=== PATIENT | female | born 1950 | race Caucasian/White ===

== ENCOUNTER → 2017-08-31 09:18 | Outpatient (CLI) | payer MEDICARE, OTHER, SELFPAY ==
[2017-08-31 11:58] LABS: Thyroid Stimulating Hormone 0.12 uIU/mL (0.47-4.68)
== END ==
PROVIDERS: PCP Family Medicine; Visit Provider Internal Medicine Endocrinology, Diabetes & Metabolism
DX: E89.0 Postprocedural hypothyroidism (principal)
CPT/HCPCS: 36415; 84443

== ENCOUNTER → 2017-09-13 06:45 | Outpatient (CLI) | payer MEDICARE, OTHER, SELFPAY ==
[2017-09-13 07:06] LABS: RBC Urine None Seen (0-5/HPF)
[2017-09-13 07:52] LABS: Add Manual Diff / Slide Review NO; Basophils Percent Auto 1.2 % (0-2); Eosinophils Percent Auto 4.7 % (2-4); Hematocrit 43.8 % (36-46); Hemoglobin 14.8 g/dL (12.0-16.0); Lymphocytes Percent Auto 32.2 % (25-40); Mean Corpuscular HGB Conc 33.8 % (30-36); Mean Corpuscular Hemoglobin 31.5 PG (26-34); Mean Corpuscular Volume 93.4 fL (80-100); Monocytes Percent Auto 8.4 % (3-14); Neutrophils Absolute Auto 2600 /uL (3000-5900); Neutrophils Percent Auto 53.5 % (50-75); Platelet Count 205 X10^3/uL (150-400); Red Blood Cell Count 4.69 X10^6/uL (4.0-5.2); White Blood Cell Count 4.8 X10^3/uL (4.5-11.0)
[2017-09-13 08:05] LABS: Appearance Urine UA CLEAR; Bilirubin Urine UA NEGATIVE (NEGATIVE); Color Urine UA YELLOW; Glucose Urine UA NEGATIVE (Normal); Ketones Urine UA NEGATIVE (NEGATIVE); Leukocyte Esterase Urine UA NEGATIVE (NEGATIVE); Nitrite Urine UA Negative (Negative); Occult Blood Urine UA NEGATIVE (Negative); Protein Urine UA NEGATIVE (Negative); Specific Gravity Urine UA 1.025 (1.000-1.035); Urobilinogen Urine UA 0.2 E.U./dL (0.2)
[2017-09-13 08:13] LABS: Squamous Epithelial Cell Urine 5-10 /HPF; WBC Urine 0-1/HPF (0-5/HPF)
[2017-09-13 08:14] LABS: Bacteria Urine Few (2-10); Culture Indicated Urine Cult Not Indicated; Mucus Urine 1+ (Negative)
[2017-09-13 09:00] LABS: Blood Urea Nitrogen 18 mg/dL (7-17); Calcium 9.3 mg/dL (8.4-10.2); Carbon Dioxide 24 mmol/L (22-32); Chloride 105 mmol/L (98-107); Estimated Glomerular Filt Rate > 60.0 mL/min (>60); Glucose 84 mg/dL (80-110); HEMOLYSIS 22 (0-50); Sodium 143 mmol/L (137-145)
[2017-09-13 09:19] LABS: Transferrin 245 mg/dL (206-381)
[2017-09-13 09:42] LABS: Hemoglobin A1C% w Est Avg Glu 5.1 % (4.0-6.0)
== END ==
PROVIDERS: PCP Family Medicine; Visit Provider Orthopaedic Surgery
DX: M25.562 Pain in left knee (principal); Z01.812 Encounter for preprocedural laboratory examination; D64.9 Anemia, unspecified; R73.9 Hyperglycemia, unspecified; N39.0 Urinary tract infection, site not specified
CPT/HCPCS: 36415; 80048; 81001; 83036; 84466; 85025; 93005

== ENCOUNTER 2017-10-10 11:42 | Inpatient (IN) | payer MEDICARE, OTHER, SELFPAY ==
[2017-09-21 10:52] VITALS: BMI 55.2
[2017-10-10] VITALS (12 sets, daily range): BP systolic 107–155; BP diastolic 57–85; PULSE 71–89; RESP 12–22; TEMP 36.2–36.6; O2SAT 91–99; BMI 56.2
[2017-10-10] MEDS: LACTATED RINGERS 1,000 ML 42 ML IV ×2 (13:00→14:50)
[2017-10-10] MEDS: MIDAZOLAM 2 MG/2 ML VIAL IV (13:02)
[2017-10-10] MEDS: ACETAMINOPHEN 325 MG TABLET 975 MG PO (13:05)
[2017-10-10] MEDS: CELECOXIB 200 MG CAPSULE PO (13:05)
[2017-10-10] MEDS: fentaNYL 100 MCG/2 ML INJ IV ×2 (13:07→13:25)
[2017-10-10] MEDS: CEFAZOLIN VIAL 3 GM in SODIUM CHLORIDE 0.9% 100 ML 200 ML IV ×2 (13:45→21:05)
[2017-10-10] MEDS: TRANEXAMIC ACID 1,000 MG VIAL 1000 MG INJ ×2 (14:00→14:33)
--- NOTE | 2017-10-10 14:17 | SUR.OPER ---
Supine on padded OR bed. Pillow under head, arms secured on padded armboards <90 degree abduction. Additional gel pads on hips, elbows. Safety belt across torso. Non-operative leg secured with tape over blanket over lower leg. Operative leg secured in DeMayo/Landry positioner. Foam padded brace at thigh of operative leg.
[2017-10-10] MEDS: BUPIVACAINE LIPOSOME 266 MG/20 ML VIAL INJ (14:31)
[2017-10-10] MEDS: BUPIVACAINE 0.25% W/ EPI 50 ML VIAL INJ (14:31)
[2017-10-10] MEDS: MORPHINE 4 MG/ML INJ INJ (14:31)
--- NOTE | 2017-10-10 15:24 | PM.PROC.1 ---
Procedures Date/Time Date of procedure: 10/10/17 Time of procedure: 13:00 General Procedure description: Left Femoral Nerve block Pt sedated. Standard ASA monitors applied. Sterile prep and drape of the left groin using Chloroprep. 1% Lidocaine skin wheel. Ultrasound probe used to guide a 21 Ga x 100 mm Pajunk needle towards the Femoral Nerve. Positive stimulation of the femoral nerve at 1.0 mA. Negative aspiration for blood. No pain on injection of 0.5% Ropivicaine. 15 ml total. No signs of LAST. Complications: none
--- NOTE | 2017-10-10 15:28 | PM.PROC.1 ---
Procedures Date/Time Date of procedure: 10/10/17 Time of procedure: 13:00 General Procedure description: Left Sciatic Nerve Block Std ASA monitors. Pt sedated. Sterile prep of left lateral aspect of the thigh using Chloroprep. 1% Lidocaine skin wheel. Ultrasound used to guide a 21 GA X 100 mm Pajunk needle towards the Sciatic Nerve. Positive stimulation using a PNS. Negative aspiration for blood. No pain on injection of 15 ml of 0.5% Ropivicaine. Pt tolerated the procedure well. Complications: none
--- NOTE | 2017-10-10 16:31 | DI.RAD.S_ITS ---
PROCEDURE: XR KNEE LT 1TO2V INDICATIONS: post op total knee TECHNIQUE: 2 view(s) of the knee acquired. COMPARISON: None. FINDINGS: Bones: Patient is status post knee joint arthroplasty. Hardware components are in expected positions. Visualized bony structures are intact. Soft tissues: Overlying postoperative changes are noted. IMPRESSION: Expected appearance following knee arthroplasty. Dictated by: Krish Grant M.D. on 10/10/2017 at 16:56 Approved by: Krish Grant M.D. on 10/10/2017 at 16:57
--- NOTE | 2017-10-10 16:32 | PM.OP.1 ---
Operative Date/Time/Diagnoses Date of procedure: 10/10/17 Time of procedure: 16:10 Pre-op diagnosis: Loosening of tibial component, left knee Post-op diagnosis: same Procedure & Clinicians Procedure: Revision of both femoral and tibial components, left total knee Same procedure as scheduled: Yes Indications: The patient has had progressively worsening left knee pain with radiographic changes consistent with loosening of her tibial component of her total knee. Non-operative management has failed and the patient has requested total knee replacement. Infection has been extensively worked up and ruled out preoperatively. The risks, benefits and alternatives to surgery were discussed with the patient prior to proceeding. Risks discussed included, but were not limited to, failure to relieve pain, stiffness, infection, nerve damage, deep venous thrombosis, pulmonary embolism, stroke, coma, heart attack, permanent paralysis and , as well as the potential need for eventual revision of the prosthetic. Surgeon: Junior Murphy Floor Tiling Professional: Claudio Sy Click Yes if Unassisted: No Anesthesia Type: General, Peripheral nerve block and Local Operative Notes Findings: Loose tibial component with well-fixed femoral component. The patella also appeared to be well fixed. Closure Type: primary Specimen(s): other (And tissue was sent for culture and Gram stain) Implants & Drains: Implants used in this procedure were manufactured by the [employer] and included a Legion revision total knee system with a size 4 left constrained Oxinium femoral component, a straight 14 x 160 mm femoral stem, a size 3 left revision tibial base plate with a 5 mm medial tibial augment, a 4 mm offset tool turret lathe set up operator and a 11 mm x 160 mm stem. In addition a 13 mm cross-linked polyethylene posterior stabilized tibial insert was used. Applied: catheter and implant(s) Estimated Blood Loss (mL): 300 Blood products transfused: none Tourniquet time (min): 68 Procedure in detail: The patient was seen in the pre-operative area, where the left knee was identified as the operative site and this was marked with my initials. The patient received pre-operative antibiotics, and was taken to the operating room and placed on the operative table in the supine position. After satisfactory anesthesia, a time clock inspector out was performed. The left leg was encircled with a tourniquet about the proximal thigh, and the leg was prepared from the toes to the tourniquet with ChloroPrep in the usual fashion and draped through sterile drapes. The leg was elevated and exsanguinated with Eschmark bandage and the tourniquet inflated to 300 mmHg pressure. The knee was approached through an approximately 25 cm incision using the prior incision and carried into the knee through a medial parapatellar arthrotomy. The stitches from the prior capsular closure were removed. A synovectomy was performed removing the carroll synovium. The well-fixed femoral component was loosened from the underlying bone using osteotomes and removed with a tamp. Minimal bone was removed. Retractors were placed to access the tibia, the tibial component was very easily removed as it was grossly loose. No cement was adherent to the tibial component. All of it remained on the tibia. This was removed with osteotomes with great care, however open up the bone was removed on the medial tibial plateau to require augmentation. After removal of the cement, the canal was sounded with cylindrical reamers. The 11 had a good fit and this was used as an intramedullary guide for the cutting jig. A skim cut was taken from the lateral tibial plateau which remained in good condition. The tibial Sizer was applied. A 4 mm offset appeared to allow the best positioning. This was pinned in place and the canal enlarged using the appropriate reamers. The trial tibial component was then applied. The out antenna rigger for cutting space for the augment was used on the medial side for a 5 mm augment. The trial component was then fully constructed with the trial stem and the trial augment and placed in position. The fin slots were cut with the appropriate tamp. We then turned our attention to the femur. The rotational landmark of the transepicondylar axis was marked on the femur with electrocautery, and an intramedullary guide hole for the femur was created. The distal femoral cut was made , creating a skim cut. The size of the prosthetic was matched with the prosthetic guide had been removed and the appropriate cutting block placed. The anterior, posterior and chamfer cuts were then made. The trial femoral prosthetic was constructed and placed. With a 13 mm trial there was full extension and excellent stability in flexion and extension. Flexion range of motion measured approximately 120?. Further flexion was limited by the patient's obesity. During trialing the tourniquet was deflated at a tourniquet time of 50 min. The leg was then elevated and re-exsanguinated with the Esmarch bandage and the tourniquet reinflated to allow cementing. Cement was impacted into position and the prosthetics placed. Excess cement was removed during and after cement curing. The final tibial insert was then placed. The posterior capsule was injected with part of a mixture of 50 ml 0.25% Marcaine mixed with 20 ml Exparel and 4 mg of morphine for post-operative pain control prior to placing the tibial insert. The remainder of this mixture was injected into the capsule and subcutaneous tissues during cement curing. As the patella was well fixed, we elected to leave it in position. The knee was copiously irrigated and the tourniquet deflated. Hemostasis was obtained. The capsule was closed with interrupted # 2 polyester sutures. The subcutaneous layer was closed with 3-0 Vicryl, and the skin with nikhil. A Kam dressing was applied and the patient was taken to recovery having tolerated the procedure well. Complications: none Condition: stable Disposition: PACU Plan for aftercare: The patient will be maintained on a standard total knee replacement protocol with weight bearing as tolerated. The patient will receive aspirin and sequential compression devices for DVT prophylaxis. The patient will be discharged home when safe for the home environment.
[2017-10-10] MEDS: fentaNYL 100 MCG/2 ML INJ 50 MCG IV ×2 (16:35→16:40)
--- NOTE | 2017-10-10 16:46 | P.OP_ITS ---
Operative Date/Time/Diagnoses Date of procedure: 10/10/17 Time of procedure: 16:10 Pre-op diagnosis: Loosening of tibial component, left knee Post-op diagnosis: same Procedure & Clinicians Procedure: Revision of both femoral and tibial components, left total knee Same procedure as scheduled: Yes Indications: The patient has had progressively worsening left knee pain with radiographic changes consistent with loosening of her tibial component of her total knee. Non-operative management has failed and the patient has requested total knee replacement. Infection has been extensively worked up and ruled out preoperatively. The risks, benefits and alternatives to surgery were discussed with the patient prior to proceeding. Risks discussed included, but were not limited to, failure to relieve pain, stiffness, infection, nerve damage, deep venous thrombosis, pulmonary embolism, stroke, coma, heart attack, permanent paralysis and , as well as the potential need for eventual revision of the prosthetic. Surgeon: Junior Murphy Drive Worker: Claudio Sy Click Yes if Unassisted: No Anesthesia Type: General, Peripheral nerve block and Local Operative Notes Findings: Loose tibial component with well-fixed femoral component. The patella also appeared to be well fixed. Closure Type: primary Specimen(s): other (And tissue was sent for culture and Gram stain) Implants & Drains: Implants used in this procedure were manufactured by the [employer] and included a Legion revision total knee system with a size 4 left constrained Oxinium femoral component, a straight 14 x 160 mm femoral stem, a size 3 left revision tibial base plate with a 5 mm medial tibial augment, a 4 mm offset home sales service professional and a 11 mm x 160 mm stem. In addition a 13 mm cross-linked polyethylene posterior stabilized tibial insert was used. Applied: catheter and implant(s) Estimated Blood Loss (mL): 300 Blood products transfused: none Tourniquet time (min): 68 Procedure in detail: The patient was seen in the pre-operative area, where the left knee was identified as the operative site and this was marked with my initials. The patient received pre-operative antibiotics, and was taken to the operating room and placed on the operative table in the supine position. After satisfactory anesthesia, a multimedia developer out was performed. The left leg was encircled with a tourniquet about the proximal thigh, and the leg was prepared from the toes to the tourniquet with ChloroPrep in the usual fashion and draped through sterile drapes. The leg was elevated and exsanguinated with Eschmark bandage and the tourniquet inflated to 300 mmHg pressure. The knee was approached through an approximately 25 cm incision using the prior incision and carried into the knee through a medial parapatellar arthrotomy. The stitches from the prior capsular closure were removed. A synovectomy was performed removing the carroll synovium. The well-fixed femoral component was loosened from the underlying bone using osteotomes and removed with a tamp. Minimal bone was removed. Retractors were placed to access the tibia, the tibial component was very easily removed as it was grossly loose. No cement was adherent to the tibial component. All of it remained on the tibia. This was removed with osteotomes with great care, however open up the bone was removed on the medial tibial plateau to require augmentation. After removal of the cement, the canal was sounded with cylindrical reamers. The 11 had a good fit and this was used as an intramedullary guide for the cutting jig. A skim cut was taken from the lateral tibial plateau which remained in good condition. The tibial Sizer was applied. A 4 mm offset appeared to allow the best positioning. This was pinned in place and the canal enlarged using the appropriate reamers. The trial tibial component was then applied. The out fisher lobster for cutting space for the augment was used on the medial side for a 5 mm augment. The trial component was then fully constructed with the trial stem and the trial augment and placed in position. The fin slots were cut with the appropriate tamp. We then turned our attention to the femur. The rotational landmark of the transepicondylar axis was marked on the femur with electrocautery, and an intramedullary guide hole for the femur was created. The distal femoral cut was made , creating a skim cut. The size of the prosthetic was matched with the prosthetic guide had been removed and the appropriate cutting block placed. The anterior, posterior and chamfer cuts were then made. The trial femoral prosthetic was constructed and placed. With a 13 mm trial there was full extension and excellent stability in flexion and extension. Flexion range of motion measured approximately 120?. Further flexion was limited by the patient's obesity. During trialing the tourniquet was deflated at a tourniquet time of 50 min. The leg was then elevated and re- exsanguinated with the Esmarch bandage and the tourniquet reinflated to allow cementing. Cement was impacted into position and the prosthetics placed. Excess cement was removed during and after cement curing. The final tibial insert was then placed. The posterior capsule was injected with part of a mixture of 50 ml 0.25% Marcaine mixed with 20 ml Exparel and 4 mg of morphine for post-operative pain control prior to placing the tibial insert. The remainder of this mixture was injected into the capsule and subcutaneous tissues during cement curing. As the patella was well fixed, we elected to leave it in position. The knee was copiously irrigated and the tourniquet deflated. Hemostasis was obtained. The capsule was closed with interrupted # 2 polyester sutures. The subcutaneous layer was closed with 3-0 Vicryl, and the skin with nikhil. A Kam dressing was applied and the patient was taken to recovery having tolerated the procedure well. Complications: none Condition: stable Disposition: PACU Plan for aftercare: The patient will be maintained on a standard total knee replacement protocol with weight bearing as tolerated. The patient will receive aspirin and sequential compression devices for DVT prophylaxis. The patient will be discharged home when safe for the home environment.
[2017-10-10] MEDS: HYDROMORPHONE 1 MG INJ IV (16:50)
[2017-10-10] MEDS: LACTATED RINGERS 1,000 ML 100 ML IV (17:30)
--- NOTE | 2017-10-10 17:55 | PC.NURSE ---
Post-op note: Pt brought to rm 217 around 1730, VS stable. RA oxygen high 90's. Denies pain to left knee after they gave me some good stuff downstairs. Left knee with ritesh wrap drsg and antonio/drain, site CDI. Ice packs in place. Denies numbness to L leg but does report her left toes are still numb. Wearing SCD's bilaterally. Oriented to room & call button, visiting with family at bedside.
[2017-10-10] MEDS: ACETAMINOPHEN 325 MG TABLET 650 MG PO (18:40)
[2017-10-10] MEDS: LIOTHYRONINE 5 MCG TABLET 2.5 MCG PO (18:40)
[2017-10-10] MEDS: OXYCODONE IR 5 MG TABLET PO (21:01)
[2017-10-10] MEDS: SIMVASTATIN 20 MG TABLET PO (21:01)
[2017-10-10] MEDS: DOCUSATE 100 MG CAPSULE PO (21:01)
[2017-10-10] MEDS: hydrOXYzine pamoate 25 MG CAPSULE PO (21:01)
[2017-10-10] MEDS: ASPIRIN EC 81 MG TABLET PO (21:01)
[2017-10-11] VITALS (7 sets, daily range): BP systolic 103–129; BP diastolic 56–69; PULSE 59–84; RESP 16–18; TEMP 36.2–36.8; O2SAT 92–99
[2017-10-11] MEDS: ACETAMINOPHEN 325 MG TABLET 650 MG PO ×4 (00:37→18:24)
[2017-10-11] MEDS: OXYCODONE IR 5 MG TABLET PO ×6 (00:37→21:46)
[2017-10-11] MEDS: LACTATED RINGERS 1,000 ML 100 ML IV (03:30)
--- NOTE | 2017-10-11 04:58 | PC.NURSE ---
Nozzle Worker- Pt slept fair throughout night. Rated 6/10 pain as dull intermittent ache to left knee. Oxycodone po prn given at 0035. Afterwards pt fell asleep. Left knee JORGE dressing intact with scant sang shadowing to mid dressing, covered with ritesh wrap. ice pack used on/off. CMS satisfactory. Left foot remained slightly numb at 0025 assessment, pt able to wiggle toes and slightly dorsal flex foot. Calf SCD's on. Pérez insitu draining clear yellow urine. IVF infusing well to right hand PIV per order. Pt has not had much po intake, plan to keep IVF infusing for now. O2 sat 95% on RA, remained on continuous O2 monitoring throughout night. High fall risk precautions in place, bed alarm on.
[2017-10-11 06:00] LABS: Hemoglobin 12.6 g/dL (12.0-16.0)
[2017-10-11] MEDS: CEFAZOLIN VIAL 3 GM in SODIUM CHLORIDE 0.9% 100 ML 200 ML IV (06:01)
[2017-10-11] MEDS: LIOTHYRONINE 5 MCG TABLET PO (06:33)
[2017-10-11] MEDS: LEVOTHYROXINE 150 MCG TABLET PO (06:33)
--- NOTE | 2017-10-11 08:24 | PC.NURSE ---
Shift summary: Awake and alert, oriented X3. THIAGO wrap to L knee C/D/I. JORGE drain/dressing WNL. Reports ongoing numbness from L knee to toes. She is able to wiggle toes. PP+ to BLE's, feet pink/warm. Cap refill <2 sec. Reports L knee pain 5/10. Ice packs and SCD's in place. Encouraged coughing, deep breathing and ankle waving. Lungs CTA, SpO2 on RA 100%. Denies N/V, tolerating PO's well. BT+, flatus+. Pérez to gravity, urine clear yellow. IVF per orders, site in R hand WNL. Able to make needs known, states none now. Call light in reach, bed alarm on.
--- NOTE | 2017-10-11 08:44 | PT.IPTN ---
Current Diagnoses Broken internal joint prosthesis, other site, subsequent encounter (10/10/17) Surgery Performed Operation Date: 10/10/17 13:45 Actual Procedures p Total Knee Arthroplasty Revision(Left) - Junior Murphy MD Physical Therapy Treatment Note Subjective Physical Therapy Visit Type Type Administrative Note Notes Pt has no feeling or active motion in the LLE from the knee down except for PF. Pt also reports the doctor saw her this morning and said not to put weight on it until more feeling/control comes back. Will hold PT eval for now and check back later.
[2017-10-11] MEDS: MELOXICAM 7.5 MG TABLET 15 MG PO (10:22)
[2017-10-11] MEDS: SPIRONOLACTONE 25 MG TABLET PO (10:22)
[2017-10-11] MEDS: FLUTICASONE 120 SPRAY/16 GM SPRAY.SUSP NASAL (10:22)
[2017-10-11] MEDS: ASPIRIN EC 81 MG TABLET PO ×2 (10:22→21:45)
[2017-10-11] MEDS: DOCUSATE 100 MG CAPSULE PO ×2 (10:22→21:45)
--- NOTE | 2017-10-11 10:25 | CM.DANOTE ---
Discharge Planning/Care Management CM Discharge Assessment Start: 10/11/17 10:22 Freq: Status: Active Protocol: Document 10/11/17 10:22 RL (Rec: 10/11/17 10:24 RL [id number]) Discharge Planning Assessment History Provided By Patient Has Patient been admitted in last 30 No days? Is this patient on Medicare? Yes Is the admit diagnosis the same? Yes Prior Living Arrangements House Household Members spouse Type of transporation used prior to Drives own vehicle admit Independent with ADL's Yes Is patient alert and oriented? Yes Caregiver for Another No Patient Discharge Plan Description Shelter Facility Comment Pt with 2 prev TKAs, has all equip needed and long ramp into home, handrails, etc. Discharge Plan Shelter Facility Additional Comment SNF vs home; depending upon mobility and pt needs once more mobile. Prefers [facility]; has gone to [facility] in past Review Status Complete DCP Assessment: 10/11/17 Case reviewed, EMR reviewed and met with patient who is fully A&O. Pt is a 66 yo female admitted as Inpatient status for revision of LTKA under the care of Dr. Murphy. PCP: Frankie Pascal Primary payor is: [facility]; secondary is [facility] Other health care agencies used: none Met with patient. Introduced self as DCP, explained role and goals of DCP and as pt advocate. Patient verbalized understanding. DCP wrote name and extension number on patient whiteboard. She lives at home with spouse. Has not filled out DPOA forms yet so DCP gave her two brochures on the subject for her and spouse. Patient was independent at baseline for all ADLs prior to this hospitalization. Has had 2 previous TKAs and has all equip at home except for shower chair. Last two TKAs she went to [facility]. If she is mobilizing well she would like to go home, but feels she will likely need a SNF and prefers [facility]. Currently she still has the neuro block from surgery intact, so not sure how pain will be and unsure about mobilization; to be seen after block wears off. Contacted: Roshni higgins for Judie at [facility] to please access chart and review for possible admission when stable to transfer. Plan: Home vs SNF/[facility]. To be determined. Follow closely. Nikky Hsu RN
--- NOTE | 2017-10-11 12:30 | PT.IPTN ---
Current Diagnoses Broken internal joint prosthesis, other site, subsequent encounter (10/10/17) Surgery Performed Operation Date: 10/10/17 13:45 Actual Procedures p Total Knee Arthroplasty Revision(Left) - Junior Murphy MD Physical Therapy Treatment Note Subjective Physical Therapy Visit Type Type Administrative Note Notes Pt's legs still completely numb with minimal voluntary motion at the ankles. Will continue to hold PT eval until pt's motor control and sensation are more improved.
--- NOTE | 2017-10-11 12:34 | CM.DPC ---
10/11: KIERAN received VM messg from Judie at [facility]. States that insurance coverage for this patient checks out; all she would need is to have the 3 midnight stay for coverage and transfer, and they would be happy to accept her at [facility]. (Needs 2 more midnights at this time, as is POD 1.)
--- NOTE | 2017-10-11 13:24 | PM.PNPO.1 ---
Subjective Date Patient Seen: 10/11/17 Time Patient Seen: 13:24 Interval history: S/P Lt Revison total knee arthroplasty by Dr. Murphy. PD 1. Pt stable. States that she can move her toes now but still numb from her knee down to foot. This morning she could not move her foot up. She was given some PT exercies to do in bed this morning. Exam Vital Signs (past 8 hours): - 10/11/17 05:40 10/11/17 07:15 10/11/17 12:17 Temperature 97.4 F L 97.6 F 98.3 F Pulse Rate 64 59 L 84 Respiratory Rate 18 16 16 Blood Pressure 103/56 L 111/64 129/65 H Pulse Oximetry 96 97 97 Oxygen Delivery Method Room Air Oxygen Flow Rate 0 Narrative Exam Narrative: Left knee peroneal block still in place. Numbness from knee down to foot. Can actively dorsiflex and plantarflex ankle. THIAGO wrap over left knee. JORGE dressing in place. Andrés calves soft and nontender. Alert and oriented x3. Objective Labs Result Diagrams: 10/11/17 05:29 Labs: Laboratory Results - last 24 hr 10/11/17 05:29 Hgb 12.6 Hct 37.0 Assessment & Plan Post-op Postoperative Procedures Operation Date: 10/10/17 13:45 Actual Procedures Side Surgeon p Total Knee Arthroplasty Revision Left Junior Murphy MD s/p Lt revison TKA. PD 1. Continue DVT prophylaxis with ASA, SCDs and foot pumps. Continue pain regimen. Pt to ambulate with PT. Time Spent With Patient less than 15 minutes Quality VTE Deep Vein Thrombosis/Pulmonary Embolism Present on Admission: No
[2017-10-11] MEDS: SIMVASTATIN 20 MG TABLET PO (21:46)
[2017-10-12] VITALS (7 sets, daily range): BP systolic 97–126; BP diastolic 51–74; PULSE 66–89; RESP 16–18; TEMP 36.1–36.8; O2SAT 96–99
[2017-10-12] MEDS: ACETAMINOPHEN 325 MG TABLET 650 MG PO ×4 (02:20→17:47)
[2017-10-12] MEDS: OXYCODONE IR 5 MG TABLET PO ×11 (02:21→21:49)
[2017-10-12] MEDS: hydrOXYzine pamoate 25 MG CAPSULE PO (04:12)
[2017-10-12] MEDS: LEVOTHYROXINE 150 MCG TABLET PO (07:10)
[2017-10-12] MEDS: LIOTHYRONINE 5 MCG TABLET PO (07:10)
--- NOTE | 2017-10-12 07:11 | PM.PNPO.1 ---
Subjective Date Patient Seen: 10/12/17 Time Patient Seen: 07:11 Interval history: Postop day 2. Status post revision of both femoral and tibial components, left total knee. Patient's pain is 8/10. Residual numbness left lower extremity yesterday was not out of bed with physical therapy. She did perform in bed exercises 3 times. No fever chills. No nausea vomiting. Exam Vital Signs (past 8 hours): - 10/12/17 02:05 10/12/17 04:02 Temperature 97.1 F L 97 F L Pulse Rate 66 72 Respiratory Rate 16 18 Blood Pressure 102/60 103/59 L Pulse Oximetry 99 96 Oxygen Delivery Method Room Air Oxygen Flow Rate 0 Narrative Exam Narrative: 66-year-old female resting comfortably in bed in no apparent distress. Kam dressing intact and functioning. Dressing is clean and dry. Sensation grossly intact to light touch bilateral lower extremities. Dorsiflexion, plantar flexion, great toe extension as well as inversion, eversion intact bilateral lower extremities. Objective Labs Result Diagrams: 10/11/17 05:29 Assessment & Plan Post-op Postoperative Procedures Operation Date: 10/10/17 13:45 Actual Procedures Side Surgeon p Total Knee Arthroplasty Revision Left Junior Murphy MD weightbearing as tolerated. Encourage out of bed and mobilize with physical therapy. Continue aspirin sequential compressive devices for DVT prophylaxis. Time Spent With Patient less than 15 minutes Quality VTE Deep Vein Thrombosis/Pulmonary Embolism Present on Admission: No
[2017-10-12] MEDS: ASPIRIN EC 81 MG TABLET PO ×2 (08:42→21:25)
[2017-10-12] MEDS: FLUTICASONE 120 SPRAY/16 GM SPRAY.SUSP NASAL (08:42)
[2017-10-12] MEDS: DOCUSATE 100 MG CAPSULE PO ×2 (08:42→21:25)
[2017-10-12] MEDS: MELOXICAM 7.5 MG TABLET 15 MG PO (08:42)
--- NOTE | 2017-10-12 09:23 | PT.IPTN ---
Current Diagnoses Broken internal joint prosthesis, other site, subsequent encounter (10/10/17) Surgery Performed Operation Date: 10/10/17 13:45 Actual Procedures p Total Knee Arthroplasty Revision(Left) - Junior Murphy MD Physical Therapy Treatment Note M2 PT-IP Current Condition Start: 10/11/17 08:23 Freq: NEEDED Status: Active Protocol: Document 10/12/17 09:23 AB (Rec: 10/12/17 12:05 AB [email or web address]) Physical Therapy Current Condition Current Condition Evaluation Date 10/12/17 Treatment Diagnosis s/p L TKA revision Onset Date 10/10/17 Weight Bearing Status Weight Bearing Status Weight Bear as Tolerated M3 PT-IP Subjective Start: 10/11/17 08:23 Freq: NEEDED Status: Active Protocol: Document 10/12/17 09:23 AB (Rec: 10/12/17 12:05 AB [email or web address]) Subjective Physical Therapy Visit Type Type Initial Evaluation Visit Start Time 09:23 Visit Stop Time 10:11 Total Visit Minutes 48 Number of RESPIRATORY CLINICIAN Visits 0 Physical Therapy Visit Comments Patient Comments pt agreeable to do therapy Short Term Goals stated that she is thinking on going to [facility] for rehab Therapy Pain Assessment Pain When Pain Assessed At Rest Pain Present Pain Present Pain Reported Location Left Knee Intensity 8 Scale Used Numeric (1 - 10) Pain Management Techniques Apply Cold Re-positioning Timing of Activity with Medications M4 PT-IP Mobility and Gait Start: 10/11/17 08:23 Freq: NEEDED Status: Active Protocol: Document 10/12/17 09:23 AB (Rec: 10/12/17 12:05 AB [email or web address]) PT-Bed Mobility Assessment Supine to Sit Supine to Sit Moderate Assistance PT-Transfer Assessment Sit to and From Stand Sit to and from Stand Moderate Assistance Use of Upper Extremities Equipment Transfer Assistive Device Gait Belt Front Wheeled Walker Orthotic/Prosthetic Devices or Brace: No Transfers Transfer Destination Chair Transfer Technique Stand Step Pivot Transfer Ability Level of Assist Moderate Assistance 1 Person Assistance Use of Upper Extremities Comments Mobility Comments pt was able to take ~ 5 steps to transfer bed to chair. c/o lightheadedness and nausea and requested to sit down on chair. Pt unable to ambulate at this time. BP in supine prior to tx: 146/ 67 BP after transfer sitting on chair: 96/56 Nurse informed about BP and pt 's c/o lightheadedness/nausea Gait Assessment Comments Gait Comments unable to ambulate at this time PT-Balance Assessment Sitting Balance and Reactions Static Sitting Balance Ability Good Dynamic Sitting Balance Ability Good Standing Balance and Reactions Static Standing Balance Ability Fair Dynamic Standing Balance Ability Fair Device Used FWW M5 PT-IP Objective Assessments Start: 10/11/17 08:23 Freq: NEEDED Status: Active Protocol: Document 10/12/17 09:23 AB (Rec: 10/12/17 12:05 AB [email or web address]) Orientation Orientation/Cognition Level of Alertness Alert Orientation Name Age Birthday Month Date Year Day of Week Place Situation Gross Range of Motion Lower Extremity ROM Assessment Bilaterally Impaired Strength Lower Extremity Strength Assessment Bilaterally Impaired Knee 3+/5 Comments Strength Comments LLE weaker than RLE M6 PT-IP Treatment Start: 10/11/17 08:23 Freq: NEEDED Status: Active Protocol: Document 10/12/17 09:23 AB (Rec: 10/12/17 12:05 AB [email or web address]) Physical Therapy Treatment Education Education Provided Weight Bearing Status Post-Op Packet Safety M7 PT-IP Assessment and Plan Start: 10/11/17 08:23 Freq: NEEDED Status: Active Protocol: Document 10/12/17 09:23 AB (Rec: 10/12/17 12:05 AB [email or web address]) PT Summary Assessment and Plan Potential Rehabilitation Potential Fair Status of Condition at Evaluation Evolving Summary Impairments Pain ROM Strength Balance Bed Mobility Transfers Gait Activity Tolerance Assessment Summary pt requiring mod A with mobility and has decrease activity tolerance with decrease in BP after transfer. pt stated that she has limited assist at home. Pt may require SNF rehab to improve function and independence. Goals Bed Mobility Goal Standby Assistance Transfer Goal Standby Assistance Gait Goal Standby Assistance Gait Distance 100 Days to Meet Goals 3 Frequency of Treatment Frequency Of Treatment Twice a Day Treatment Plan Physical Therapy Treatment Plan Bed Mobility Training Transfer Training Gait Training Therapeutic Exercise Balance Retraining Post Op Education Discharge Planning Hot or Cold Pack Neuromuscular Re-ed Coordination Retraining Manual Therapy Other Recommendations and Next Treatment ambulation Focus Recommendations To Nursing Amount of Assist Needed 1 Person Assist Discharge Recommendations PT Discharge Recommendations SNF Rehab
--- NOTE | 2017-10-12 14:30 | PT.IPTN ---
Current Diagnoses Broken internal joint prosthesis, other site, subsequent encounter (10/10/17) Surgery Performed Operation Date: 10/10/17 13:45 Actual Procedures p Total Knee Arthroplasty Revision(Left) - Junior Murphy MD Physical Therapy Treatment Note M2 PT-IP Current Condition Start: 10/11/17 08:23 Freq: NEEDED Status: Active Protocol: Document 10/12/17 09:23 AB (Rec: 10/12/17 12:05 AB [email or web address]) Physical Therapy Current Condition Current Condition Evaluation Date 10/12/17 Treatment Diagnosis s/p L TKA revision Onset Date 10/10/17 Weight Bearing Status Weight Bearing Status Weight Bear as Tolerated M3 PT-IP Subjective Start: 10/11/17 08:23 Freq: NEEDED Status: Active Protocol: Document 10/12/17 14:30 GGD (Rec: 10/12/17 14:57 GGD [id number]) Subjective Physical Therapy Visit Type Type Treatment Note Visit Start Time 14:00 Visit Stop Time 14:30 Total Visit Minutes 30 Number of ERP SPECIALIST Visits 1 Physical Therapy Visit Comments Patient Comments Pt states that she is ready to get back to bed. Therapy Pain Assessment Pain When Pain Assessed At Rest Pain Present Pain Present Pain Reported Location Left Knee Intensity 8 Scale Used Numeric (1 - 10) Description Burning Pain Management Techniques Apply Cold Re-positioning Timing of Activity with Medications M4 PT-IP Mobility and Gait Start: 10/11/17 08:23 Freq: NEEDED Status: Active Protocol: Document 10/12/17 14:30 GGD (Rec: 10/12/17 14:57 GGD [id number]) PT-Bed Mobility Assessment Sit to Supine Sit to Supine Moderate Assistance 1 Person Assistance Scooting Scooting to Edge of Bed Contact Guard Assistance PT-Transfer Assessment Sit to and From Stand Sit to and from Stand Minimal Assistance Use of Upper Extremities Equipment Transfer Assistive Device Gait Belt Front Wheeled Walker Transfers Transfer Destination Bed Comments Mobility Comments BP in sitting 117/56 Gait Assessment Gait Gait Assistance Required: Contact Guard Assist Distance (Feet) (feet) 15 Assistive Devices Assistive Device Gait Belt Front Wheeled Walker Gait Deviations General Gait Pattern Decreased Stride Length Decreased Feet Clearance Step-to Gait Factors Limiting Gait Function Factors Limiting Gait Function Decreased Activity Tolerance Decreased Sensation Decreased Strength Limited Range of Motion Pain Poor Balance M5 PT-IP Objective Assessments Start: 10/11/17 08:23 Freq: NEEDED Status: Active Protocol: Document 10/12/17 09:23 AB (Rec: 10/12/17 12:05 AB [email or web address]) Orientation Orientation/Cognition Level of Alertness Alert Orientation Name Age Birthday Month Date Year Day of Week Place Situation Gross Range of Motion Lower Extremity ROM Assessment Bilaterally Impaired Strength Lower Extremity Strength Assessment Bilaterally Impaired Knee 3+/5 Comments Strength Comments LLE weaker than RLE M6 PT-IP Treatment Start: 10/11/17 08:23 Freq: NEEDED Status: Active Protocol: Document 10/12/17 14:30 GGD (Rec: 10/12/17 14:57 GGD [id number]) Physical Therapy Treatment Exercises Exercises Ankle Pumps Quad Sets Heel Slides Seated Knee Flexion/Extension M7 PT-IP Assessment and Plan Start: 10/11/17 08:23 Freq: NEEDED Status: Active Protocol: Document 10/12/17 14:30 GGD (Rec: 10/12/17 14:57 GGD [id number]) PT Summary Assessment and Plan Summary Assessment Summary Pt improving slowly with mobility. She was able to walk with cues for UE support. Frequency of Treatment Frequency Of Treatment Twice a Day Treatment Plan Physical Therapy Treatment Plan Bed Mobility Training Transfer Training Gait Training Therapeutic Exercise Balance Retraining Post Op Education Discharge Planning Hot or Cold Pack Neuromuscular Re-ed Coordination Retraining Manual Therapy Other Recommendations and Next Treatment ambulation Focus Recommendations To Nursing Amount of Assist Needed 1 Person Assist Discharge Recommendations PT Discharge Recommendations SNF Rehab
[2017-10-12] MEDS: LIOTHYRONINE 5 MCG TABLET 2.5 MCG PO (16:26)
[2017-10-12] MEDS: SIMVASTATIN 20 MG TABLET PO (21:25)
[2017-10-13] MEDS: ACETAMINOPHEN 325 MG TABLET 650 MG PO ×3 (00:39→12:23)
[2017-10-13] MEDS: OXYCODONE IR 5 MG TABLET PO ×3 (00:41→06:45)
--- NOTE | 2017-10-13 00:56 | PC.NURSE ---
Addendum entered by Patrizia Black R.N. 10/13/17 03:51: Medicated with Oxycodone for 7/10 left calf pain. SCD's removed for next hour as per protocol. Original Note: Addendum entered by Patrizia Black R.N. 10/13/17 03:03: Complains of 3/10 left knee pain; medicated with Vistaril as too early for Oxycodone at this time. Original Note: Patient is alert and oriented. Breath sounds CTA with RA sat of 97%. HRR. Denies nausea. BT present and is passing flatus but has not had BM since 10/10. Still has indwelling catheter related to delayed return of sensation inhibiting PT; plan is to DC later today but patient wants to wait until after therapy. JORGE dressing is intact and covered with ritesh wrap. Complains of 8/10 pain so medicated with scheduled Tylenol and Oxycodone. CMS is intact. Is able to turn self in bed. Wearing bilateral SCD's. Fall risk score is high and bed alarm is activated.
[2017-10-13] MEDS: hydrOXYzine pamoate 25 MG CAPSULE PO (03:02)
[2017-10-13] MEDS: LEVOTHYROXINE 150 MCG TABLET PO (05:34)
[2017-10-13] MEDS: LIOTHYRONINE 5 MCG TABLET PO (05:35)
[2017-10-13 06:17] VITALS: BP 117/57; PULSE 85; RESP 16; TEMP 36.7; O2SAT 95
--- NOTE | 2017-10-13 07:28 | PM.DS.1 ---
History of Present Illness Date Patient Seen: 10/13/17 Time Patient Seen: 07:10 Chief complaint: [id number] Narrative: History and physical is contained in the chart previously completed note. Please refer to that note for this information. Patient presented for elective revision of left total knee. 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 She underwent an uncomplicated revision of the left total knee. The patient had a prolonged response to her peroneal nerve block. Due to her foot drop on postoperative day 1 she was unable to make much progress in physical therapy. This was compounded by her morbid obesity. By postoperative day 3 it was felt that a discharge to snf was appropriate. Status at Discharge Cognitive/behavioral status at discharge: Normal Functional status at discharge: uses cane/walker Overall status at discharge: patient is progressing back to baseline Time Spent with Patient Less than 30 minutes Exam Vital Signs (past 8 hours): - 10/12/17 23:43 10/13/17 06:17 Temperature 98.2 F 98.0 F Pulse Rate 84 85 Respiratory Rate 16 16 Blood Pressure 97/51 L 117/57 L Pulse Oximetry 98 95 Oxygen Delivery Method Room Air Oxygen Flow Rate 0 Narrative Exam Narrative: Left knee wound is dressed with no drainage on the bandage. Calf is soft. Light touch and motion are intact throughout the left lower extremity. Objective Labs Result Diagrams: 10/11/17 05:29 Discharge Plan Discharge Plan Patient Disposition: SNF Transfer to: [facility] Under care of provider: Gwyn David MD, Junior Murphy MD Transportation: Wheelchair I certify the postop hospital snf care is medically necessary on a continuing basis for any conditions for which he/ she received care during this hospitalization.: Yes The receiving facility has agreed to accept transfer and provide medical treatment.: Yes Discharge Med Rec/Prescriptions Prescriptions: New oxycodone 5 mg Tablet 5 mg PO Q3HR PRN (Reason: Pain, Moderate (4-6)) Qty: 60 RF: 0 aspirin 81 mg Tablet,Delayed Release (Dr/Ec) 81 mg PO BID Qty: 60 RF: 0 hydroxyzine pamoate 25 mg Capsule 25 mg PO Q6HR PRN (Reason: Nausea) Qty: 60 RF: 0 Continue fluticasone 16 GM spray,suspension 1 spray Intranasal DAILY Qty: 0 RF: 0 cholecalciferol (vitamin D3) [Vitamin D3] 1,000 UNIT tablet 2,000 iu PO Q DAY Qty: 0 RF: 0 liothyronine [Cytomel] 5 MCG tablet 5 mcg PO QAM Qty: 0 RF: 0 meloxicam 15 MG tablet 15 mg PO Q DAY Qty: 30 RF: 2 spironolactone 25 mg tablet 25 mg PO QDAY Qty: 90 RF: 0 simvastatin 20 mg tablet 20 mg PO HS Qty: 90 RF: 0 liothyronine [Cytomel] 5 mcg Tablet 2.5 mcg PO QPM RF: 0 levothyroxine 150 mcg Tablet 150 mcg PO DAILY RF: 0 Follow up/Referrals: Junior Murphy MD [Physician] - ([place] [facility] Discharge Health Status Brief summary of current health status: Morbid obesity, hypothyroidism, status post revision of left total knee. Multidrug resistant organism: No MDRO MDRO Verified by culture: No Precautions: [place] Provider Discharge Instructions Diet: Diet as Tolerated Liquid consistency: Normal/Thin Food texture: Regular Activity: Up ad deepthi, weight bearing as tolerated Cold/Heat Therapy: Ice to left knee as needed Other treatments: Keep dressing in place until follow up. May shower with dressing in place. Wound Care Report to your healthcare provider any signs of infection, such as:: chills, fever, night sweats, increased pain and unusual drainage Dressing: Keep dressing in place until follow up. May shower with dressing in place. Special Rehabilitation Services Reason for rehabilitation: Post-operative therapy and Recovery r/t decondition Rehab type: Physical therapy Restrictions to mobility: None Discharge Data Primary Care Provider: Frankie Pascal Attending Provider: Junior Murphy Admit Date/Time: 10/10/17 11:42 Quality VTE Deep Vein Thrombosis/Pulmonary Embolism Present on Admission: No
--- NOTE | 2017-10-13 07:31 | P.DS_ITS ---
History of Present Illness Date Patient Seen: 10/13/17 Time Patient Seen: 07:10 Chief complaint: [id number] Narrative: History and physical is contained in the chart previously completed note. Please refer to that note for this information. Patient presented for elective revision of left total knee. 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 She underwent an uncomplicated revision of the left total knee. The patient had a prolonged response to her peroneal nerve block. Due to her foot drop on postoperative day 1 she was unable to make much progress in physical therapy. This was compounded by her morbid obesity. By postoperative day 3 it was felt that a discharge to prison was appropriate. Status at Discharge Cognitive/behavioral status at discharge: Normal Functional status at discharge: uses cane/walker Overall status at discharge: patient is progressing back to baseline Time Spent with Patient Less than 30 minutes Exam Vital Signs (past 8 hours): - 10/12/17 23:43 10/13/17 06:17 Temperature 98.2 F 98.0 F Pulse Rate 84 85 Respiratory Rate 16 16 Blood Pressure 97/51 L 117/57 L Pulse Oximetry 98 95 Oxygen Delivery Method Room Air Oxygen Flow Rate 0 Narrative Exam Narrative: Left knee wound is dressed with no drainage on the bandage. Calf is soft. Light touch and motion are intact throughout the left lower extremity. Objective Labs Result Diagrams: 10/11/17 05:29 Discharge Plan Discharge Plan Patient Disposition: SNF Transfer to: [facility] Under care of provider: Gwyn David MD, Junior Murphy MD Transportation: Wheelchair I certify the postop hospital prison care is medically necessary on a continuing basis for any conditions for which he/ she received care during this hospitalization.: Yes The receiving facility has agreed to accept transfer and provide medical treatment.: Yes Discharge Med Rec/Prescriptions Prescriptions: New oxycodone 5 mg Tablet 5 mg PO Q3HR PRN (Reason: Pain, Moderate (4-6)) Qty: 60 RF: 0 aspirin 81 mg Tablet,Delayed Release (Dr/Ec) 81 mg PO BID Qty: 60 RF: 0 hydroxyzine pamoate 25 mg Capsule 25 mg PO Q6HR PRN (Reason: Nausea) Qty: 60 RF: 0 Continue fluticasone 16 GM spray,suspension 1 spray Intranasal DAILY Qty: 0 RF: 0 cholecalciferol (vitamin D3) [Vitamin D3] 1,000 UNIT tablet 2,000 iu PO Q DAY Qty: 0 RF: 0 liothyronine [Cytomel] 5 MCG tablet 5 mcg PO QAM Qty: 0 RF: 0 meloxicam 15 MG tablet 15 mg PO Q DAY Qty: 30 RF: 2 spironolactone 25 mg tablet 25 mg PO QDAY Qty: 90 RF: 0 simvastatin 20 mg tablet 20 mg PO HS Qty: 90 RF: 0 liothyronine [Cytomel] 5 mcg Tablet 2.5 mcg PO QPM RF: 0 levothyroxine 150 mcg Tablet 150 mcg PO DAILY RF: 0 Follow up/Referrals: Junior Murphy MD [Physician] - (Follow up at [facility] [place] in 10-14 days) Discharge Health Status Brief summary of current health status: Morbid obesity, hypothyroidism, status post revision of left total knee. Multidrug resistant organism: No MDRO MDRO Verified by culture: No Precautions: [place] Provider Discharge Instructions Diet: Diet as Tolerated Liquid consistency: Normal/Thin Food texture: Regular Activity: Up ad deepthi, weight bearing as tolerated Cold/Heat Therapy: Ice to left knee as needed Other treatments: Keep dressing in place until follow up. May shower with dressing in place. Wound Care Report to your healthcare provider any signs of infection, such as:: chills, fever, night sweats, increased pain and unusual drainage Dressing: Keep dressing in place until follow up. May shower with dressing in place. Special Rehabilitation Services Reason for rehabilitation: Post-operative therapy and Recovery r/t decondition Rehab type: Physical therapy Restrictions to mobility: None Discharge Data Primary Care Provider: Frankie Pascal Attending Provider: Junior Murphy Admit Date/Time: 10/10/17 11:42 Quality VTE Deep Vein Thrombosis/Pulmonary Embolism Present on Admission: No
[2017-10-13 08:00] VITALS: BP 119/67; PULSE 81; RESP 16; TEMP 36.7; O2SAT 98
--- NOTE | 2017-10-13 08:01 | CM.DPC ---
DCP Discharge SNF Per MD, pt is medically stable to d/c to SNF today for further rehab. Per RN, pt's campuzano to be taken out this morning and likely will need to wait to d/c until afternoon to allow pt to void. TON met bedside with pt and explained role and pt states she is still agreeable with d/c plan to [facility] today. SW provided her Medicare Rights and pt acknowledged understanding and signed her Medicare Message. SW inquired if pt would like SW to update family members on d/c and pt stated she would call her spouse and he would be bringing her bag of clothes and she would also let her son know. Karin TYLER kindly agreed to fax PASRR, med rec, script to [facility] and set up the time for transport. TON updated RN. Plan: Patient to d/c to [facility] today and waiting for [facility] call back to set up transport time. CAROL Solomon
[2017-10-13] MEDS: MELOXICAM 7.5 MG TABLET 15 MG PO (09:12)
[2017-10-13] MEDS: SODIUM CHLORIDE 0.9% FLUSH 10 ML IV (09:12)
[2017-10-13] MEDS: ASPIRIN EC 81 MG TABLET PO (09:12)
[2017-10-13] MEDS: FLUTICASONE 120 SPRAY/16 GM SPRAY.SUSP NASAL (09:12)
[2017-10-13] MEDS: DOCUSATE 100 MG CAPSULE PO (09:12)
[2017-10-13] MEDS: SPIRONOLACTONE 25 MG TABLET PO (09:12)
--- NOTE | 2017-10-13 09:22 | PC.NURSE ---
UPON BEDSIDE SHIFT REPORT PT REFUSES BUSBY REMOVAL UNTIL WORKS WITH Audra MENENDEZ ORDERED BUSBY REMOVAL AT 0730. PT REQUESTS BUSBY BE REMOVED AFTER BREAKFAST. BUSBY REMOVED AT 0920.
[2017-10-13] MEDS: OXYCODONE IR 5 MG TABLET 10 MG PO ×2 (10:20→13:17)
--- NOTE | 2017-10-13 11:50 | PT.IPTN ---
Current Diagnoses Broken internal joint prosthesis, other site, subsequent encounter (10/10/17) Surgery Performed Operation Date: 10/10/17 13:45 Actual Procedures p Total Knee Arthroplasty Revision(Left) - Junior Murphy MD Physical Therapy Treatment Note M2 PT-IP Current Condition Start: 10/11/17 08:23 Freq: NEEDED Status: Active Protocol: Document 10/12/17 09:23 AB (Rec: 10/12/17 12:05 AB [email or web address]) Physical Therapy Current Condition Current Condition Evaluation Date 10/12/17 Treatment Diagnosis s/p L TKA revision Onset Date 10/10/17 Weight Bearing Status Weight Bearing Status Weight Bear as Tolerated M3 PT-IP Subjective Start: 10/11/17 08:23 Freq: NEEDED Status: Active Protocol: Document 10/13/17 11:50 GGD (Rec: 10/13/17 12:11 GGD [id number]) Subjective Physical Therapy Visit Type Type Treatment Note Visit Start Time 11:20 Visit Stop Time 11:50 Total Visit Minutes 30 Number of ENDOSCOPE TECHNICIAN Visits 2 Physical Therapy Visit Comments Patient Comments Pt state that she needs to use the bathroom. Therapy Pain Assessment Pain When Pain Assessed At Rest Pain Present Pain Present Pain Reported Location Left Knee Intensity 6 Scale Used Numeric (1 - 10) Pain Management Techniques Apply Cold Re-positioning Timing of Activity with Medications M4 PT-IP Mobility and Gait Start: 10/11/17 08:23 Freq: NEEDED Status: Active Protocol: Document 10/13/17 11:50 GGD (Rec: 10/13/17 12:11 GGD [id number]) PT-Bed Mobility Assessment Supine to Sit Supine to Sit Moderate Assistance Scooting Scooting to Edge of Bed Contact Guard Assistance PT-Transfer Assessment Sit to and From Stand Sit to and from Stand Minimal Assistance Moderate Assistance 1 Person Assistance Use of Upper Extremities Transfers Transfer Destination Chair Toilet Gait Assessment Gait Gait Assistance Required: Contact Guard Assist Distance (Feet) (feet) 20 Assistive Devices Assistive Device Gait Belt Front Wheeled Walker Gait Deviations General Gait Pattern Decreased Stride Length Decreased Feet Clearance Step-to Gait Factors Limiting Gait Function Factors Limiting Gait Function Decreased Activity Tolerance Decreased Sensation Decreased Strength Limited Range of Motion Pain Poor Balance M5 PT-IP Objective Assessments Start: 10/11/17 08:23 Freq: NEEDED Status: Active Protocol: Document 10/12/17 09:23 AB (Rec: 10/12/17 12:05 AB [email or web address]) Orientation Orientation/Cognition Level of Alertness Alert Orientation Name Age Birthday Month Date Year Day of Week Place Situation Gross Range of Motion Lower Extremity ROM Assessment Bilaterally Impaired Strength Lower Extremity Strength Assessment Bilaterally Impaired Knee 3+/5 Comments Strength Comments LLE weaker than RLE M6 PT-IP Treatment Start: 10/11/17 08:23 Freq: NEEDED Status: Active Protocol: Document 10/13/17 11:50 GGD (Rec: 10/13/17 12:11 GGD [id number]) Physical Therapy Treatment Exercises Exercises Ankle Pumps Quad Sets Heel Slides Seated Knee Flexion/Extension M7 PT-IP Assessment and Plan Start: 10/11/17 08:23 Freq: NEEDED Status: Active Protocol: Document 10/13/17 11:50 GGD (Rec: 10/13/17 12:11 GGD [id number]) PT Summary Assessment and Plan Summary Assessment Summary Pt improving slowly. She was able to progress gait. She did need increase in assist with stand from toilet vs bed. Frequency of Treatment Frequency Of Treatment Twice a Day Treatment Plan Other Recommendations and Next Treatment ambulation Focus Recommendations To Nursing Amount of Assist Needed 1 Person Assist Discharge Recommendations PT Discharge Recommendations SNF Rehab
[2017-10-13] MEDS: ONDANSETRON 4 MG ODT PO (12:24)
--- NOTE | 2017-10-13 12:26 | PC.NURSE ---
DRSG CHANGE PER ORDERS TO AQUACEL XL. SURGICAL INCISION WELL APPROXIMATED WITH MORTEZA. SMALL AMT OF SANG DRAINAGE DURING DRESSING CHANGE. PT REPORTS NAUSEA. NO EMESIS. ZOFRAN ODT GIVEN. D/C FOR TKA AND OXYCODONE PROVIDED.
--- NOTE | 2017-10-13 12:50 | PC.NURSE ---
D/C TO [facility] TODAY AT APPROX 1330. REPORT GIVEN TO COBY ADMITTING NURSE.
--- NOTE | 2017-10-13 13:55 | PC.NURSE ---
PT LEFT VIA W/C TO [employer] BY [facility] STAFF MEMBER. PACKET GIVEN TO [facility] STAFF.
== END 2017-10-13 13:35 | DRG 467 ==
PROVIDERS: Admitting Provider Orthopaedic Surgery; Family Provider Family Medicine; PCP Family Medicine; Visit Provider Orthopaedic Surgery
PROC: 0SPD0JZ Removal of Synthetic Substitute from Left Knee Joint, Open Approach (ICD-10-PCS; principal; 2017-10-10 13:45)
DX: T84.033A Mechanical loosening of internal left knee prosthetic joint, initial encounter (principal); Z68.43 Body mass index [BMI] 50.0-59.9, adult; E66.01 Morbid (severe) obesity due to excess calories; E03.9 Hypothyroidism, unspecified; E78.00 Pure hypercholesterolemia, unspecified; M21.372 Foot drop, left foot
CPT/HCPCS: 36415; 64450; 73560; 85014; 85018; 87070; 87075; 87205; 97116; 97162; 97530; C1776; C9290; J0690; J1100; J1170; J2250; J2270; J2405; J2704; J3010

== ENCOUNTER → 2018-10-27 06:46 | Outpatient (CLI) | payer MEDICARE, OTHER, SELFPAY ==
[2017-10-10 18:20] VITALS: BMI 56.2
[2018-10-27 08:57] LABS: Thyroid Stimulating Hormone 0.46 uIU/mL (0.47-4.68)
== END ==
PROVIDERS: PCP Family Medicine; Visit Provider Internal Medicine Endocrinology, Diabetes & Metabolism
DX: E89.1 Postprocedural hypoinsulinemia (principal); E89.0 Postprocedural hypothyroidism
CPT/HCPCS: 36415; 84443

== ENCOUNTER → 2019-09-05 16:08 | Outpatient (CLI) | payer MEDICARE, OTHER, SELFPAY ==
[2017-10-10 18:20] VITALS: BMI 56.2
--- NOTE | 2019-09-05 | DI.MRI.S_ITS ---
PROCEDURE: MR CERVICAL SPINE WO CON INDICATIONS: Radiculopathy, cervical region TECHNIQUE: Noncontrast sagittal T1 spin echo and T2 fast spin echo, sagittal STIR, foraminal oblique sagittal T2 fast spin echo, and axial gradient echo or T2 fast spin echo through the cervical spine. COMPARISON: None. FINDINGS: Image quality: This examination is limited by involuntary motion artifact. Alignment and Curvature: There is straightening of the normal cervical lordosis. No focal AP alignment abnormality is seen. Bone Marrow: Marrow demonstrates normal overall signal. Spinal Cord: Visualized spinal cord has normal size and signal. No cerebellar tonsillar herniation. Paraspinous Soft Tissues: No paravertebral masses. Prevertebral soft tissues are normal in thickness. C2-C3: The disc height is well-preserved. Loss of disc signal is seen at this level. A mild degree of generalized disc osteophyte complex is seen. There is a mild central disc osteophyte protrusion seen. There is mild to moderate right-sided and mild left-sided facet hypertrophy seen. There is mild to moderate bilateral neural foraminal narrowing seen. Mild to moderate central canal narrowing is seen. There is associated mass effect upon the ventral spinal cord. C3-C4: The disc height is well-preserved. Loss of disc signal is seen at this level. A mild degree of generalized disc osteophyte complex is seen. There is mild right-sided and mild to moderate left-sided facet hypertrophy seen. There is mild right-sided and moderate left-sided neural foraminal narrowing seen. Mild central canal narrowing is seen. C4-C5: The disc height is well-preserved. Loss of disc signal is seen at this level. A mild degree of generalized disc osteophyte complex is seen. There is mild right-sided and mild to moderate left-sided facet hypertrophy seen. There is moderate right-sided and moderate to severe left-sided neural foraminal narrowing seen. Minimal central canal narrowing is seen. C5-C6: The disc height is well-preserved. Loss of disc signal is seen at this level. Mild to moderate disc osteophyte complex is seen. Mild to moderate facet hypertrophy is seen. There is moderate left-sided and mild right-sided neural foraminal narrowing seen. Mild central canal narrowing is seen. C6-C7: Mild loss of disc height is seen. Loss of disc signal is seen. Moderate generalized disc osteophyte complex is seen. Moderate facet joint hypertrophy is seen. There is moderate to severe bilateral neural foraminal narrowing seen. Mild to moderate central canal narrowing is seen. C7-T1: No significant abnormality is seen. IMPRESSION: Multiple levels of cervical spine degenerative change are seen, which are overall most prominent at the C6-C7 level. Dictated by: Pollo Davenport M.D. on 09/05/2019 at 16:08 Approved by: Pollo Davenport M.D. on 09/05/2019 at 16:12
== END ==
PROVIDERS: PCP Student in an Organized Health Care Education/Training Program; Referring Provider Physical Medicine & Rehabilitation; Visit Provider Physical Medicine & Rehabilitation
DX: M47.22 Other spondylosis with radiculopathy, cervical region (principal)
CPT/HCPCS: 72141

== ENCOUNTER → 2019-11-23 09:34 | Outpatient (CLI) | payer MEDICARE, OTHER, SELFPAY ==
[2017-10-10 18:20] VITALS: BMI 56.2
[2019-11-23 11:55] LABS: Thyroid Stimulating Hormone 1.67 uIU/mL (0.47-4.68)
== END ==
PROVIDERS: PCP Student in an Organized Health Care Education/Training Program; Referring Provider Internal Medicine Endocrinology, Diabetes & Metabolism; Visit Provider Internal Medicine Endocrinology, Diabetes & Metabolism
DX: E89.0 Postprocedural hypothyroidism (principal)
CPT/HCPCS: 36415; 84443

== ENCOUNTER → 2019-12-24 12:27 | Outpatient (CLI) | payer MEDICARE, OTHER, SELFPAY ==
[2017-10-10 18:20] VITALS: BMI 56.2
--- NOTE | 2019-12-24 12:29 | DI.RAD.S_ITS ---
PROCEDURE: XR SHOULDER RT MIN 2V INDICATIONS: Shoulder pain, injury TECHNIQUE: 3 views of the shoulder were acquired. COMPARISON: None. FINDINGS: Bones: No fracture. AC joint degeneration. Soft tissues: No suspicious soft tissue calcifications. IMPRESSION: Acromioclavicular degenerative joint disease. If the patient's pain or other symptoms persist, consider further evaluation with MRI Dictated by: Flex Holguin M.D. on 12/24/2019 at 14:51 Approved by: Flex Holguin M.D. on 12/24/2019 at 14:52
== END ==
PROVIDERS: PCP Student in an Organized Health Care Education/Training Program; Referring Provider Student in an Organized Health Care Education/Training Program; Visit Provider Student in an Organized Health Care Education/Training Program
DX: S49.91XA Unspecified injury of right shoulder and upper arm, initial encounter (principal); M25.511 Pain in right shoulder; M19.011 Primary osteoarthritis, right shoulder; X58.XXXA Exposure to other specified factors, initial encounter
CPT/HCPCS: 73030

== ENCOUNTER → 2020-12-12 11:12 | Outpatient (CLI) | payer MEDICARE, OTHER, SELFPAY ==
[2017-10-10 18:20] VITALS: BMI 56.2
[2020-12-12 13:02] LABS: BUN Creatinine Ratio 22.7 (6-22); Blood Urea Nitrogen 15 mg/dL (7-17); Estimated Glomerular Filt Rate > 60.0 mL/min (>60)
== END ==
PROVIDERS: PCP Student in an Organized Health Care Education/Training Program; Referring Provider Orthopaedic Surgery; Visit Provider Orthopaedic Surgery
DX: Z01.818 Encounter for other preprocedural examination (principal)
CPT/HCPCS: 36415; 82565; 84520

== ENCOUNTER → 2020-12-18 10:33 | Outpatient (CLI) | payer MEDICARE, OTHER, SELFPAY ==
[2017-10-10 18:20] VITALS: BMI 56.2
--- NOTE | 2020-12-18 | DI.MRI.S_ITS ---
PROCEDURE: MR WRIST LT W CON INDICATIONS: PAIN IN LEFT HAND TECHNIQUE: After the administration of 3-4 mL of dilute intra-articular Gadolinium contrast into the radiocarpal compartment, coronal T1 spin echo with fat saturation and T2 fast spin echo with fat saturation, axial T1 spin echo and T2 fast spin echo with fat saturation, sagittal T1 spin echo with and without fat saturation through the wrist. COMPARISON: [facility], CR, XR HAND 3+ VIEWS BILATERAL, 09/22/2020, 10:40. [facility], , MD WRIST INJECTION MR/CT LT, 12/18/2020, 10:59. FINDINGS: Image quality: Excellent. Bones and cartilage: There is widening of the scapholunate interval. Severe narrowing of the radiolunate articulation is seen with subchondral edema. There is mild dorsal tilting of the lunate. Multifocal T2 hyperintensities are seen within the bases of the metacarpals as well as the distal carpal row, the triquetrum, and the pisiform, which could represent degenerative cystic changes or osseous erosions. Superimposed degenerative changes are seen at the triscaphe and 1st carpometacarpal joints. Carpal ligaments: Widening of the scapholunate interval is seen with contrast extending into the midcarpal joint, consistent with full-thickness tearing of the scapholunate ligament. The lunotriquetral ligament is intact. Triangular fibrocartilage complex: There is full-thickness tearing of the triangle fibrocartilage disc with contrast seen extending into the distal radioulnar joint. The dorsal radioulnar ligament is poorly visualized and may be torn. The volar radioulnar ligament likely remains in continuity. Tendons and soft tissues: The carpal tunnel structures appear normal, including the median nerve. The ulnar nerve appears normal within Guyon's canal. Fluid is seen at the dorsum of the wrist related to the arthrogram injection. Similarly, there is T1-hyperintense contrast material within the 2nd extensor compartment. There is tenosynovitis of the extensor carpi ulnaris tendon and moderate tendinosis. No soft tissue ganglion cysts. IMPRESSION: 1. Complete tearing of the scapholunate ligament with widening of the scapholunate interval. Dorsal tilting of the lunate may indicate developing dorsal intercalated segment instability. No significant proximal migration of the capitate. 2. Large full-thickness tear involving the central triangle fibrocartilage disc and likely the dorsal radial ulnar ligament. 3. Numerous areas of cortical irregularity and T2-hyperintensity throughout the carpal bones and more prominently at the bases of the metacarpals are suspicious for small erosions. Moderate synovial hypertrophy is seen in throughout the wrist. Findings are suspicious for an inflammatory arthritis such as rheumatoid arthritis, and correlation with clinical findings and serologies is recommended. 4. Superimposed moderate to severe degenerative changes are seen at the radiolunar, triscaphe, and 1st carpometacarpal joints. 5. Moderate extensor carpi ulnaris tendinosis and tenosynovitis. 6. The radiocarpal joint space communicates with the midcarpal and distal radioulnar joint spaces. Dictated by: Josse Fountain M.D. on 12/18/2020 at 12:48 Approved by: Josse Fountain M.D. on 12/18/2020 at 13:06
--- NOTE | 2020-12-18 | DI.RAD.S_ITS ---
PROCEDURE: [place] WRIST INJECTION MR/CT LT INDICATIONS: PAIN IN LEFT HAND COMPARISON: [facility], MR, MR WRIST LT W CON, 12/18/2020, 10:50. TECHNIQUE: After informed consent had been obtained, the wrist was examined fluoroscopically, and a site chosen for injection of the radiocarpal compartment from a dorsal approach. Skin was prepped and draped in a sterile fashion and 1% lidocaine infiltrated from the skin down to the articular surface. A hypodermic needle was then introduced into the articular space and a modest amount of contrast medium was instilled confirming intra-articular needle tip placement. This was followed by approximately 4 mL of a dilute gadolinium solution. Needle was removed and dressing was applied. The patient experienced no complications throughout the procedure and left the fluoroscopic suite in no apparent distress. FINDINGS: A single fluoroscopic spot image demonstrates intra-articular location to injected iodinated contrast. IMPRESSION: Successful fluoroscopic-guided administration of dilute Gadolinium solution for wrist MR arthrogram. Dictated by: Nicola Morse M.D. on 12/18/2020 at 13:57 Approved by: Nicola Morse M.D. on 12/18/2020 at 13:58
== END ==
PROVIDERS: PCP Student in an Organized Health Care Education/Training Program; Referring Provider Orthopaedic Surgery; Visit Provider Orthopaedic Surgery
DX: M79.642 Pain in left hand (principal); S63.502A Unspecified sprain of left wrist, initial encounter; M65.832 Other synovitis and tenosynovitis, left forearm
CPT/HCPCS: 20605; 73222; 76000

== ENCOUNTER → 2020-12-24 10:02 | Outpatient (CLI) | payer MEDICARE, OTHER, SELFPAY ==
[2017-10-10 18:20] VITALS: BMI 56.2
[2020-12-24 11:14] LABS: Add Manual Diff / Slide Review NO; Basophils Absolute Auto 0 /uL (0-100); Basophils Percent Auto 0.7 % (0-2); Eosinophils Absolute Auto 300 /uL (0-450); Eosinophils Percent Auto 4.9 % (2-4); Hematocrit 41.6 % (36-46); Hemoglobin 13.7 g/dL (12.0-16.0); Lymphocytes Absolute Auto 1700 /uL (1100-4500); Lymphocytes Percent Auto 24.5 % (25-40); Mean Corpuscular Hemoglobin 30.7 PG (26-34); Mean Corpuscular Volume 93.3 fL (80-100); Monocytes Absolute Auto 600 /uL (0-900); Neutrophils Absolute Auto 4300 /uL (1500-7000); Neutrophils Percent Auto 61.9 % (50-75); Platelet Count 240 X10^3/uL (150-400); Red Blood Cell Count 4.46 X10^6/uL (4.0-5.2); Red Cell Distribution Width 14.5 % (11.6-14.8); White Blood Cell Count 6.9 X10^3/uL (4.5-11.0)
[2020-12-24 11:32] LABS: Erythrocyte Sedimentation Rate 45 MM/HR (0-20)
[2020-12-24 11:42] LABS: C-Reactive Protein Quant 1.3 mg/dL (<1.0)
[2020-12-24 11:54] LABS: Rheumatoid Factor 435.5 IU/mL (<12.0)
[2020-12-26 21:14] LABS: ANA Screen, IFA Positive (.)
== END ==
PROVIDERS: PCP Student in an Organized Health Care Education/Training Program; Referring Provider Orthopaedic Surgery; Visit Provider Orthopaedic Surgery
DX: M19.131 Post-traumatic osteoarthritis, right wrist (principal); M25.339 Other instability, unspecified wrist
CPT/HCPCS: 36415; 85025; 85651; 86038; 86140; 86430

== ENCOUNTER → 2021-02-20 11:03 | Outpatient (CLI) | payer MEDICARE, OTHER, SELFPAY ==
[2017-10-10 18:20] VITALS: BMI 56.2
[2021-02-20 12:55] LABS: Thyroid Stimulating Hormone 1.17 uIU/mL (0.47-4.68)
== END ==
PROVIDERS: PCP Student in an Organized Health Care Education/Training Program; Referring Provider Internal Medicine Endocrinology, Diabetes & Metabolism; Visit Provider Internal Medicine Endocrinology, Diabetes & Metabolism
DX: E89.0 Postprocedural hypothyroidism (principal)
CPT/HCPCS: 36415; 84443

== ENCOUNTER 2021-03-01 10:33 | Emergency (ER) | payer MEDICARE, OTHER, SELFPAY ==
[2017-10-10 18:20] VITALS: BMI 56.2
[2021-03-01 10:52] VITALS: BP 192/84; PULSE 82; RESP 18; TEMP 36.6; O2SAT 97; BMI 63.6
[2021-03-01 12:22] LABS: Add Manual Diff / Slide Review NO; Basophils Absolute Auto 100 /uL (0-100); Eosinophils Absolute Auto 200 /uL (0-450); Eosinophils Percent Auto 5.3 % (2-4); Hematocrit 37.7 % (36-46); Hemoglobin 12.5 g/dL (12.0-16.0); Lymphocytes Absolute Auto 1300 /uL (1100-4500); Lymphocytes Percent Auto 31.3 % (25-40); Mean Corpuscular HGB Conc 33.1 % (30-36); Mean Corpuscular Volume 93.5 fL (80-100); Monocytes Absolute Auto 200 /uL (0-900); Monocytes Percent Auto 5.4 % (3-14); Neutrophils Absolute Auto 2300 /uL (1500-7000); Platelet Count 231 X10^3/uL (150-400); Red Blood Cell Count 4.03 X10^6/uL (4.0-5.2); Red Cell Distribution Width 15.1 % (11.6-14.8); White Blood Cell Count 4.2 X10^3/uL (4.5-11.0)
[2021-03-01 12:35] LABS: Alanine Aminotransferase 36 IU/L (<35); Albumin 4.4 g/dL (3.5-5.0); Albumin Globulin Ratio 1.5 (1.0-2.8); Alkaline Phosphatase 86 U/L (38-126); Aspartate Aminotransferase 34 IU/L (14-36); BUN Creatinine Ratio 23.9 (6-22); Bilirubin Total 0.6 mg/dL (0.2-1.3); Blood Urea Nitrogen 17 mg/dL (7-17); Calcium 9.5 mg/dL (8.4-10.2); Carbon Dioxide 29 mmol/L (22-32); Chloride 103 mmol/L (98-107); Estimated Glomerular Filt Rate > 60.0 mL/min (>60); Globulin 2.9 g/dL (1.7-4.1); Glucose 89 mg/dL (80-110); HEMOLYSIS < 15 (0-50); Potassium 4.3 mmol/L (3.4-5.1); Sodium 140 mmol/L (137-145); Total Protein 7.3 g/dL (6.3-8.2)
[2021-03-01 12:44] LABS: NT-proBNP (BNP-Adult 18+) 109 pg/mL (<125)
--- NOTE | 2021-03-01 13:24 | DI.US.S_ITS ---
PROCEDURE: US PERIPH VENOUS LOW EXTREM LT INDICATIONS: PAIN, EDEMA TECHNIQUE: Real-time imaging, as well as color and pulse Doppler interrogation, were performed of the lower extremity deep veins from the inguinal ligament to the popliteal fossa. COMPARISON: None. FINDINGS: The common femoral, femoral and popliteal veins are normally compressible, and free of intraluminal thrombus. Color and pulse Doppler demonstrate normal phasic intraluminal flow. There is normal augmentation response to distal compression maneuver. IMPRESSION: Negative for deep venous thrombosis. Dictated by: Pollo Davenport M.D. on 03/01/2021 at 13:25 Approved by: Pollo Davenport M.D. on 03/01/2021 at 13:25
--- NOTE | 2021-03-01 14:23 | ED.EXTPRO ---
HPI - Extremity Problem <Hiro Lynch PA-C - Last Filed: 03/01/21 18:43> General Chief complaint: Extremity Problem,Nontraumatic Stated complaint: ankles/feet are swollen, left leg swollen to knee Time Seen by Provider: 03/01/21 12:50 Source: patient Mode of arrival: Ambulatory Limitations: no limitations History of Present Illness HPI Narrative: Patient is a 70-year-old female presenting to the emergency department today for evaluation of increasing swelling in her left lower extremity. Patient states that she is experience intermittent swelling in the bilateral lower extremities for some time now, but she states that the swelling in her left lower extremity has become painful and has gradually troubled toward her left knee. Of note, patient states she began taking methotrexate approximately 4 weeks ago for rheumatoid arthritis. Patient denies fever, chills, chest pain, shortness of breath, cough, nausea, vomiting, diarrhea, abdominal pain, hematuria, dysuria. No other concerns voiced at this time. Related Data Home Medications Medication Instructions Recorded Confirmed cholecalciferol (vitamin D3) 25 2,000 iu PO Q DAY #0 08/17/10 12/26/19 mcg (1,000 unit) tablet (Vitamin D3) fluticasone propionate 50 1 spray INTRANASAL DAILY #0 08/17/10 12/26/19 mcg/actuation nasal spray,suspension liothyronine 5 mcg tablet (Cytomel) 5 mcg PO QAM #0 10/11/11 12/26/19 levothyroxine 150 mcg tablet 150 mcg PO DAILY 09/21/17 12/26/19 Previous Rx's Medication Instructions Recorded spironolactone 25 mg tablet 25 mg PO QDAY #90 tab 12/25/20 meloxicam 15 mg tablet 15 mg PO DAILY PRN #60 tab 12/26/20 simvastatin 20 mg tablet 20 mg PO HS #90 tab 01/08/21 famotidine 20 mg tablet (Pepcid) 20 mg PO DAILY #90 tab 02/04/21 furosemide 40 mg tablet (Lasix) 40 mg PO DAILY #3 tab 03/01/21 Allergies Allergy/AdvReac Type Severity Reaction Status Date / Time Penicillins [PENICILLINS] Allergy Severe HIVES/ITCHING, Verified 12/26/19 14:33 TOLERATES CEFOTETAN anchovies Allergy Severe Swelling Uncoded 09/23/20 14:33 of eyes, mouth Review of Systems <Hiro Lynch PA-C - Last Filed: 03/01/21 18:43> Constitutional Constitutional: Denies chills, Denies fatigue, Denies fever(s), Denies frequent falls, Denies lethargy and Denies weakness Eyes Eyes: Denies loss of vision ENT Ears, Nose, Mouth, and Throat: Denies dizziness and Denies neck pain Cardiovascular Cardiovascular: Denies chest pain, Denies irregular heart rhythm, Denies lightheadedness, Denies palpitations, Denies dyspnea, Denies dyspnea on exertion and Denies orthopnea Respiratory Respiratory: Denies cough, Denies dyspnea, Denies dyspnea on exertion and Denies wheezing Gastrointestinal Gastrointestinal: Denies abdominal pain, Denies change in bowel habits, Denies diarrhea, Denies nausea and Denies vomiting Genitourinary Genitourinary: Denies hematuria, Denies flank pain, Denies urinary incontinence and Denies urinary urgency Musculoskeletal Musculoskeletal: Denies back pain, Reports arthralgias (Left knee, left leg), Reports joint swelling (Left knee, left ankle), Denies muscle weakness, Denies neck pain, Denies numbness and Denies tingling Integumentary/Breasts Skin/Breast: Reports other (Swelling of the bilateral lower extremities.) Neurologic Neurologic: Denies behavioral changes, Denies confusion, Denies dizziness, Denies frequent falls, Denies loss of vision, Denies numbness, Denies tingling and Denies weakness Psychiatric Psychiatric: Denies behavioral changes and Denies confusion Endocrine Endocrine: Denies fatigue and Denies palpitations Allergic/Immunologic Allergic/Immunologic: Denies wheezing Patient History <Hiro Lynch PA-C - Last Filed: 03/01/21 18:43> Medical History Bruises easily Chronic knee pain Chronic shoulder pain History of neutropenia Hyperlipidemia Hypothyroidism Joint pain Lower extremity edema Thyroid nodule Surgical History H/O knee surgery (~2011) H/O knee surgery (~2012) H/O thumb surgery (~2007) H/O thyroidectomy (~2009) History of bilateral tubal ligation History of (~1972) History of (~1975) History of (~1978) History of cholecystectomy (~1995) History of colonoscopy History of discectomy (~2005) History of laparoscopic appendectomy (~2014) History of tonsillectomy (~1998) Hx of total knee arthroplasty (~2017) S/P tendon repair (~1973) S/P tendon repair (~1977) Status post cholecystectomy (~1995) Family History Father No problems noted. Mother COPD (chronic obstructive pulmonary disease) Brother Brain bleed Sister COPD (chronic obstructive pulmonary disease) Grandfather Cancer Grandmother No problems noted. Social History household members: spouse Smoking Status: Never smoker alcohol intake: current Smoking Status: Never smoker alcohol intake frequency: holidays/special occasions only Substance Use Type: does not use Exam <Hiro Lynch PA-C - Last Filed: 03/01/21 18:43> Narrative Exam Narrative: GENERAL: 70 year old patient appears stated age. Well-developed patient, in mild distress. HEAD: Atraumatic. Normocephalic. EYES: Pupils equal round and reactive. Extraocular motions intact. No scleral icterus. No injection or drainage. ENT: Nose without bleeding, purulent drainage. Throat without erythema, tonsillar hypertrophy or exudate. Airway patent. NECK: Trachea midline. Non tender CARDIOVASCULAR: Regular rate and rhythm without murmurs, gallops, or rubs. RESPIRATORY: Clear to auscultation. Breath sounds equal bilaterally. No wheezes, rales, or rhonchi. GASTROINTESTINAL: Abdomen soft, non-tender, nondistended. EXTREMITIES: Pitting edema appreciated throughout the bilateral lower extremities distal to the knee, left greater than right. Tenderness to palpation appreciated throughout the left leg from the knee extending distally to the ankle. Gross motor function intact throughout the bilateral lower extremities. Good sensation appreciated throughout the bilateral lower extremities to light touch. No excessive erythema or deformity appreciated throughout the bilateral lower extremities. BACK: Nontender without deformity or crepitance. No flank tenderness. NEURO: AOx3. SKIN: No rash or erythema of visible areas Initial Vital Signs Initial Vital Signs: Vital Signs Temperature 97.9 F 03/01/21 10:52 Pulse Rate 82 11/28/21 10:52 Respiratory Rate 18 03/01/21 10:52 Blood Pressure 192/84 H 03/01/21 10:52 Pulse Oximetry 97 03/01/21 10:52 Cardio Pulses: dorsalis pedis present bilaterally <Harper Pizano DO - Last Filed: 03/04/21 07:39> Initial Vital Signs Initial Vital Signs: Vital Signs Temperature 97.9 F 03/01/21 10:52 Pulse Rate 82 03/01/21 10:52 Respiratory Rate 18 03/01/21 10:52 Blood Pressure 192/84 H 03/01/21 10:52 Pulse Oximetry 97 03/01/21 10:52 Course <Hiro Lynch PA-C - Last Filed: 03/01/21 18:43> Course Course Narrative: CBC, CMP, BNP, venous ultrasound of the left lower extremity ordered. Orders Ordered: Discontinued Medications Furosemide (Furosemide 40 Mg Tablet) 40 mg PO NOW ONE Stop: 03/01/21 14:46 Last Admin: 03/01/21 14:56 Dose: 40 mg Documented by: PRAVEEN Vital Signs Vital signs: Vital Signs - 8 hr 03/01/21 10:52 03/01/21 14:46 Temperature 97.9 F Pulse Rate 82 72 Respiratory Rate 18 16 Blood Pressure 192/84 H 142/76 H Pulse Oximetry 97 99 <Harper Pizano DO - Last Filed: 03/04/21 07:39> Orders Ordered: Discontinued Medications Furosemide (Furosemide 40 Mg Tablet) 40 mg PO NOW ONE Stop: 03/01/21 14:46 Last Admin: 03/01/21 14:56 Dose: 40 mg Documented by: PRAVEEN Vital Signs Vital signs: Vital Signs - 8 hr 03/01/21 10:52 03/01/21 14:46 Temperature 97.9 F Pulse Rate 82 72 Respiratory Rate 18 16 Blood Pressure 192/84 H 142/76 H Pulse Oximetry 97 99 MDM - Extremity (Nontraumatic) <Hiro Lynch PA-C - Last Filed: 03/01/21 18:43> Lab Data Result diagrams: 03/01/21 11:58 03/01/21 11:58 Labs: Lab Results 03/01/21 03/01/21 03/01/21 Range/Units 11:58 11:58 11:58 WBC 4.2 L (4.5-11.0) X10^3/uL RBC 4.03 (4.0-5.2) X10^6/uL Hgb 12.5 (12.0-16.0) g/dL Hct 37.7 (36-46) % MCV 93.5 (80-100) fL MCH 31.0 (26-34) PG MCHC 33.1 (30-36) % RDW 15.1 H (11.6-14.8) % Plt Count 231 (150-400) X10^3/uL Neut % (Auto) 56.0 (50-75) % Lymph % (Auto) 31.3 (25-40) % Wythe % (Auto) 5.4 (3-14) % Eos % (Auto) 5.3 H (2-4) % Baso % (Auto) 2.0 (0-2) % Neut # (Auto) 2300 (4815-2451) /uL Lymph # (Auto) 1300 (1400-9926) /uL Wythe # (Auto) 200 (0-900) /uL Eos # (Auto) 200 (0-450) /uL Baso # (Auto) 100 (0-100) /uL Sodium 140 (137-145) mmol/L Potassium 4.3 (3.4-5.1) mmol/L Chloride 103 (98-107) mmol/L Carbon Dioxide 29 (22-32) mmol/L BUN 17 (7-17) mg/dL Creatinine 0.71 (0.52-1.04) mg/dL Estimated GFR > 60.0 (>60) mL/min BUN/Creatinine Ratio 23.9 H (6-22) Glucose 89 (80-110) mg/dL Calcium 9.5 (8.4-10.2) mg/dL Total Bilirubin 0.6 (0.2-1.3) mg/dL AST 34 (14-36) IU/L ALT 36 H (<35) IU/L Alkaline Phosphatase 86 (38-126) U/L NT-Pro-B Natriuret Pep 109 (<125) pg/mL Total Protein 7.3 (6.3-8.2) g/dL Albumin 4.4 (3.5-5.0) g/dL Globulin 2.9 (1.7-4.1) g/dL Albumin/Globulin Ratio 1.5 (1.0-2.8) Imaging Data US - DVT: Radiologist's Impression: PROCEDURE:? US PERIPH VENOUS LOW EXTREM LT ? INDICATIONS:? PAIN, EDEMA ? TECHNIQUE:? Real-time imaging, as well as color and pulse Doppler interrogation, were performed of the lower extremity deep veins from the inguinal ligament to the popliteal fossa.? ? COMPARISON:? None. ? FINDINGS:? The common femoral, femoral and popliteal veins are normally compressible, and free of intraluminal thrombus.? Color and pulse Doppler demonstrate normal phasic intraluminal flow.? There is normal augmentation response to distal compression maneuver. ? ? IMPRESSION:? ? Negative for deep venous thrombosis. ? ? Dictated by: Pollo Davenport M.D. on 03/01/2021 at 13:25 ? ? Approved by: Pollo Davenport M.D. on 03/01/2021 at 13:25 ? MDM Narrative Medical decision making narrative: Patient is a 70-year-old female presenting to the emergency department today for evaluation of increasing swelling in her left lower extremity. To consider DVT versus lymph edema verses congestive heart failure. Overall physical examination, history, labs, and imaging are reassuring. In the patient on 40 mg of Lasix in the emergency department today. The importance of having the patient follow-up with primary care was stressed. Strict return precautions discussed with patient prior to discharge. <Harper Pizano, DO - Last Filed: 03/04/21 07:39> Lab Data Labs: Lab Results 03/01/21 03/01/21 03/01/21 Range/Units 11:58 11:58 11:58 WBC 4.2 L (4.5-11.0) X10^3/uL RBC 4.03 (4.0-5.2) X10^6/uL Hgb 12.5 (12.0-16.0) g/dL Hct 37.7 (36-46) % MCV 93.5 (80-100) fL MCH 31.0 (26-34) PG MCHC 33.1 (30-36) % RDW 15.1 H (11.6-14.8) % Plt Count 231 (150-400) X10^3/uL Neut % (Auto) 56.0 (50-75) % Lymph % (Auto) 31.3 (25-40) % Wythe % (Auto) 5.4 (3-14) % Eos % (Auto) 5.3 H (2-4) % Baso % (Auto) 2.0 (0-2) % Neut # (Auto) 2300 (4218-6550) /uL Lymph # (Auto) 1300 (9316-2021) /uL Wythe # (Auto) 200 (0-900) /uL Eos # (Auto) 200 (0-450) /uL Baso # (Auto) 100 (0-100) /uL Sodium 140 (137-145) mmol/L Potassium 4.3 (3.4-5.1) mmol/L Chloride 103 (98-107) mmol/L Carbon Dioxide 29 (22-32) mmol/L BUN 17 (7-17) mg/dL Creatinine 0.71 (0.52-1.04) mg/dL Estimated GFR > 60.0 (>60) mL/min BUN/Creatinine Ratio 23.9 H (6-22) Glucose 89 (80-110) mg/dL Calcium 9.5 (8.4-10.2) mg/dL Total Bilirubin 0.6 (0.2-1.3) mg/dL AST 34 (14-36) IU/L ALT 36 H (<35) IU/L Alkaline Phosphatase 86 (38-126) U/L NT-Pro-B Natriuret Pep 109 (<125) pg/mL Total Protein 7.3 (6.3-8.2) g/dL Albumin 4.4 (3.5-5.0) g/dL Globulin 2.9 (1.7-4.1) g/dL Albumin/Globulin Ratio 1.5 (1.0-2.8) Discharge Plan Departure Patient Disposition: Home Clinical Impression: Acute leg pain, Leg swelling Instructions: DI for Leg Pain Activity Restrictions/Additional Instructions: *You have been diagnosed with acute leg pain, leg swelling *What to do: *Please continue to take your regular medications as directed. [X] New medication prescriptions sent to your pharmacy: [facility] - Lasix [ ] New medication written as a paper prescription [ ] No new medications given *Please follow up with your primary care provider within the next 24-48 hours, call for an appointment. Let them know you were seen in the Emergency Department and that we ask that you be seen in follow up. We will electronically transmit a record of today's note if your PCP is in our system *If you do not have a primary care provider please contact the [facility] Resource line at [phone]. They will ask some questions about your medical history and help get you set up with a doctor in the community. *Return to Emergency Department if you should have any new, worsening or concerning symptoms, such as fever greater than 101 F, shaking chills, worsening pain, shortness of breath, chest pain, persistent vomiting or other bothersome symptoms. Prescriptions: New furosemide [Lasix] 40 mg tablet 40 mg PO DAILY Qty: 3 0RF No Action fluticasone propionate 16 GM spray,suspension 1 spray Intranasal DAILY Qty: 0 0RF cholecalciferol (vitamin D3) [Vitamin D3] 1,000 UNIT tablet 2,000 iu PO Q DAY Qty: 0 0RF liothyronine [Cytomel] 5 MCG tablet 5 mcg PO QAM Qty: 0 0RF spironolactone 25 mg tablet 25 mg PO QDAY Qty: 90 0RF Rx Instructions: pt will need to be seen before next fill 12/25/20 meloxicam 15 mg tablet 15 mg PO DAILY PRN (Reason: Pain) Qty: 60 0RF Rx Instructions: PT WILL NEED TO BE SEEN BEFORE END OF RX PRIOR TO NEXT RENEWAL. PLEASE CALL TO SCHEDULE APPT THANKS 12/26/20 simvastatin 20 mg tablet 20 mg PO HS Qty: 90 0RF Rx Instructions: PT DUE FOR APPT W/PCP PRIOR TO END OF RX. PLEASE CALL TO SCHEDULE APPT. THANKS 01/08/21 famotidine [Pepcid] 20 mg tablet 20 mg PO DAILY Qty: 90 0RF Rx Instructions: PT DUE FOR APPT W/PCP PRIOR TO END OF RX + BEFORE REFILLS. PLEASE CALL TO SCHEDULE APPT. THANK YOU! 02/04/21 levothyroxine 150 mcg Tablet 150 mcg PO DAILY 0RF Referrals: Mickey Oliva MD [Primary Care Provider] - <Harper Pizano DO - Last Filed: 03/04/21 07:39> Cosign ED Attending Ektaature Attestation: I was immediately available in the department for consultation. Documentation has been reviewed.
[2021-03-01 14:46] VITALS: BP 142/76; PULSE 72; RESP 16; O2SAT 99
[2021-03-01] MEDS: FUROSEMIDE 40 MG TABLET PO (14:56)
== END 2021-03-01 15:50 | disposition home or self-care (01) ==
PROVIDERS: Emergency Medicine; Emergency Provider Physician Assistant; PCP Student in an Organized Health Care Education/Training Program
DX: M79.605 Pain in left leg (principal); M79.89 Other specified soft tissue disorders
CPT/HCPCS: 36415; 80053; 83880; 85025; 93971; 99283; 99284

== ENCOUNTER 2021-10-25 18:01 | Emergency (ER) | payer MEDICARE, OTHER, SELFPAY ==
[2017-10-10 18:20] VITALS: BMI 56.2
[2021-10-25 18:03] VITALS: BP 184/88; PULSE 102; RESP 24; TEMP 36.6; O2SAT 97
--- NOTE | 2021-10-25 18:22 | DI.RAD.S_ITS ---
PROCEDURE: XR CHEST 1V INDICATIONS: suspected sepsis TECHNIQUE: One view of the chest was acquired. COMPARISON: [facility], , CHEST 2 VIEW, 06/13/2012, 10:31. FINDINGS: Surgical changes and devices: None. Lungs and pleura: Left lower lung alveolar opacity and minor right infrahilar opacity. Small left pleural effusion. No definite right effusion. No pneumothorax. Mild thickening of the perihilar interstitium. Mediastinum: The heart is enlarged. Central vasculature is congested. The aortic contour is normal. Bones and chest wall: No suspicious bony lesions. Overlying soft tissues appear unremarkable. IMPRESSION: 1. Findings suggestive of central vascular and perihilar interstitial edema. 2. Bilateral infrahilar opacities, left greater than right with small left effusion may be edema or pneumonia. Correlate clinically. Dictated by: Debo Calles M.D. on 10/25/2021 at 19:16 Approved by: Debo Calles M.D. on 10/25/2021 at 19:17
[2021-10-25 18:52] LABS: Add Manual Diff / Slide Review NO; Basophils Absolute Auto 100 /uL (0-100); Basophils Percent Auto 1.2 % (0-2); Eosinophils Absolute Auto 200 /uL (0-450); Eosinophils Percent Auto 2.2 % (2-4); Hematocrit 38.8 % (36-46); Hemoglobin 13.4 g/dL (12.0-16.0); Lymphocytes Absolute Auto 1900 /uL (1100-4500); Lymphocytes Percent Auto 28.6 % (25-40); Mean Corpuscular HGB Conc 34.4 % (30-36); Mean Corpuscular Volume 98.6 fL (80-100); Monocytes Absolute Auto 400 /uL (0-900); Monocytes Percent Auto 5.9 % (3-14); Neutrophils Absolute Auto 4200 /uL (1500-7000); Neutrophils Percent Auto 62.1 % (50-75); Platelet Count 243 X10^3/uL (150-400); Red Blood Cell Count 3.93 X10^6/uL (4.0-5.2); Red Cell Distribution Width 15.6 % (11.6-14.8); White Blood Cell Count 6.8 X10^3/uL (4.5-11.0)
[2021-10-25 19:05] VITALS: BP 182/84; PULSE 96; RESP 20; O2SAT 99
[2021-10-25 19:06] LABS: Alanine Aminotransferase 28 IU/L (<35); Albumin 4.3 g/dL (3.5-5.0); Albumin Globulin Ratio 1.5 (1.0-2.8); Alkaline Phosphatase 92 U/L (38-126); Aspartate Aminotransferase 30 IU/L (14-36); BUN Creatinine Ratio 27.7 (6-22); Bilirubin Total 0.6 mg/dL (0.2-1.3); Blood Urea Nitrogen 23 mg/dL (7-17); Calcium 9.1 mg/dL (8.4-10.2); Carbon Dioxide 28 mmol/L (22-32); Chloride 104 mmol/L (98-107); Estimated Glomerular Filt Rate > 60 mL/min (>60); Globulin 2.9 g/dL (1.7-4.1); Glucose 89 mg/dL (80-110); HEMOLYSIS 37 (0-50); Lipase 102 U/L (23-300); Potassium 4.3 mmol/L (3.4-5.1); Sodium 138 mmol/L (137-145); Total Protein 7.2 g/dL (6.3-8.2)
[2021-10-25 19:07] LABS: Lactate (Lactic Acid) 1.1 mmol/L (0.7-2.1)
--- NOTE | 2021-10-25 19:22 | ED.SKABFB ---
HPI - Skin/Abscess/Foreign Bdy General Chief complaint: Skin/Abscess/Foreign Body Stated complaint: Infected ABD sores Time Seen by Provider: 10/25/21 18:08 Source: patient Mode of arrival: Ambulatory History of Present Illness HPI narrative: 70-year-old female nonsmoker with history of rheumatoid arthritis, GERD, hyperlipidemia presents with her significant other and a chief complaint of painful, poorly healing infected sores on her lower abdomen which have been present for quite some time. She was last seen and evaluated for these in August at the walk-in clinic and was put on a topical antibiotic but things have not improved. Over the past few days she is been worsening and though she denies any fever or chills she just generally feels a bit ?punky?. She denies nausea or vomiting has no abdominal pain. She denies any change in her bowel habits and has no dysuria, frequency or urgency. Related Data Home Medications Medication Instructions Recorded Confirmed cholecalciferol (vitamin D3) 25 2,000 iu PO Q DAY ##0 08/17/10 07/20/21 mcg (1,000 unit) tablet (Vitamin D3) fluticasone propionate 50 1 spray intranasal DAILY ##0 08/17/10 07/20/21 mcg/actuation nasal spray,suspension liothyronine 5 mcg tablet (Cytomel) 5 mcg PO QAM ##0 10/11/11 07/20/21 levothyroxine 150 mcg tablet 150 mcg PO DAILY 09/21/17 07/20/21 folic acid 1 mg tablet 1 mg PO DAILY 03/05/21 07/20/21 methotrexate sodium 2.5 mg tablet 10 mg PO QWEEK 03/05/21 07/20/21 Previous Rx's Medication Instructions Recorded meloxicam 15 mg tablet 15 mg PO DAILY PRN Pain #90 tabs 03/05/21 spironolactone 50 mg tablet 50 mg PO DAILY #90 tabs 03/26/21 famotidine 20 mg tablet (Pepcid) 20 mg PO DAILY #90 tabs 05/05/21 simvastatin 20 mg tablet See Rx Instructions .Route 07/14/21 .COMPLEX #90 tabs doxycycline hyclate 100 mg tablet 100 mg PO BID #20 tabs 10/25/21 Allergies Allergy/AdvReac Type Severity Reaction Status Date / Time Penicillins [PENICILLINS] Allergy Severe HIVES/ITCHING, Verified 07/20/21 11:28 TOLERATES CEFOTETAN anchovies Allergy Severe Swelling Uncoded 07/20/21 11:28 of eyes, mouth Review of Systems Review of Systems Narrative: GENERAL: Denies chills, fatigue, malaise, fever, sweats. HEENT: Denies sinus pain, ear pain, sore throat, difficulty swallowing, dizziness. RESPIRATORY: Denies dyspnea, cough, wheezing, hemoptysis, sputum. CARDIOVASCULAR: Denies chest pain, palpitations, orthopnea, edema, GASTROINTESTINAL: Denies nausea, vomiting, abdominal pain, diarrhea, constipation, melena. : Denies dysuria, frequency, incontinence, hematuria, urinary retention. MUSCULOSKELETAL: denies weakness, joint pain, or bony pain SKIN: See HPI NEUROLOGIC: Denies weakness, headache, numbness, change in speech, confusion, seizures, incoordination. PSYCHIATRIC: No concerning psychosocial issues. 12 point review of systems is negative except for those stated above Patient History Medical History Bruises easily Chronic knee pain Chronic shoulder pain History of neutropenia Hyperlipidemia Hypothyroidism Joint pain Lower extremity edema Thyroid nodule Surgical History H/O knee surgery (~2011) H/O knee surgery (~2012) H/O thumb surgery (~2007) H/O thyroidectomy (~2009) History of bilateral tubal ligation History of (~1972) History of (~1975) History of (~1978) History of cholecystectomy (~1995) History of colonoscopy History of discectomy (~2005) History of laparoscopic appendectomy (~2014) History of tonsillectomy (~1998) Hx of total knee arthroplasty (~2017) S/P tendon repair (~1973) S/P tendon repair (~1977) Status post cholecystectomy (~1995) Family History Father No problems noted. Mother COPD (chronic obstructive pulmonary disease) Brother Brain bleed Sister COPD (chronic obstructive pulmonary disease) Grandfather Cancer Grandmother No problems noted. Social History household members: spouse Smoking Status: Never smoker alcohol intake: current Smoking Status: Never smoker alcohol intake frequency: holidays/special occasions only Substance Use Type: does not use Exam Narrative Exam Narrative: GENERAL: [70] year old patient appears stated age. Well-developed patient, in mild distress. HEAD: Atraumatic. Normocephalic. EYES: Pupils equal round and reactive. Extraocular motions intact. No scleral icterus. No injection or drainage. ENT: Nose without bleeding, purulent drainage. Throat without erythema, tonsillar hypertrophy or exudate. Airway patent. NECK: Trachea midline. Non tender CARDIOVASCULAR: Regular rate and rhythm without murmurs, gallops, or rubs. RESPIRATORY: Clear to auscultation. Breath sounds equal bilaterally. No wheezes, rales, or rhonchi. GASTROINTESTINAL: Abdomen soft, non-tender, nondistended. EXTREMITIES: No edema or joint tenderness. BACK: Nontender without deformity or crepitance. No flank tenderness. NEURO: AOx3. SKIN: Multiple relatively shallow infected ulcerations on pannus with very minimal to no drainage and minimal surrounding erythema, the largest of which measures 3-4 cm across, there is minimal if any induration, no underlying abdominal pain and certainly no fluctuance. Initial Vital Signs Initial Vital Signs: Vital Signs Temperature 97.8 F 10/25/21 18:03 Pulse Rate 102 H 10/25/21 18:03 Respiratory Rate 24 10/25/21 18:03 Blood Pressure 184/88 H 10/25/21 18:03 Pulse Oximetry 97 10/25/21 18:03 Oxygen Delivery Method 10/25/21 18:03 Course Orders Ordered: ED Orders 10/25/21 19:05 Blood Culture Stat Discontinued Medications Sodium Chloride (Normal Saline 0.9%) 1,000 mls @ 1,000 mls/hr IV BOLUS ONE Stop: 10/25/21 21:03 Last Admin: 10/25/21 20:26 Dose: 1,000 mls/hr Documented By: NR Doxycycline Hyclate 100 mg/ (Sodium Chloride) 100 mls @ 100 mls/hr IV NOW ONE Stop: 10/25/21 20:05 Last Admin: 10/25/21 20:27 Dose: 100 mls/hr Documented By: NR Vital Signs Vital signs: Vital Signs - 8 hr 10/25/21 20:00 10/25/21 20:30 Pulse Rate 102 H 81 Respiratory Rate 24 16 Pulse Oximetry 98 97 MDM - Skin/Abscess/Foreign Bdy Lab Data Result diagrams: 10/25/21 18:35 10/25/21 18:35 Labs: Lab Results 10/25/21 10/25/21 10/25/21 Range/Units 18:35 18:35 18:35 WBC 6.8 (4.5-11.0) X10^3/uL RBC 3.93 L (4.0-5.2) X10^6/uL Hgb 13.4 (12.0-16.0) g/dL Hct 38.8 (36-46) % MCV 98.6 (80-100) fL MCH 34.0 (26-34) PG MCHC 34.4 (30-36) % RDW 15.6 H (11.6-14.8) % Plt Count 243 (150-400) X10^3/uL Neut % (Auto) 62.1 (50-75) % Lymph % (Auto) 28.6 (25-40) % [place] % (Auto) 5.9 (3-14) % Eos % (Auto) 2.2 (2-4) % Baso % (Auto) 1.2 (0-2) % Neut # (Auto) 4200 (8617-4236) /uL Lymph # (Auto) 1900 (8228-8796) /uL [place] # (Auto) 400 (0-900) /uL Eos # (Auto) 200 (0-450) /uL Baso # (Auto) 100 (0-100) /uL Sodium 138 (137-145) mmol/L Potassium 4.3 (3.4-5.1) mmol/L Chloride 104 (98-107) mmol/L Carbon Dioxide 28 (22-32) mmol/L BUN 23 H (7-17) mg/dL Creatinine 0.83 (0.52-1.04) mg/dL Estimated GFR > 60 (>60) mL/min BUN/Creatinine Ratio 27.7 H (6-22) Glucose 89 (80-110) mg/dL Lactate 1.1 (0.7-2.1) mmol/L Calcium 9.1 (8.4-10.2) mg/dL Total Bilirubin 0.6 (0.2-1.3) mg/dL AST 30 (14-36) IU/L ALT 28 (<35) IU/L Alkaline Phosphatase 92 (38-126) U/L Total Protein 7.2 (6.3-8.2) g/dL Albumin 4.3 (3.5-5.0) g/dL Globulin 2.9 (1.7-4.1) g/dL Albumin/Globulin Ratio 1.5 (1.0-2.8) Lipase 102 (23-300) U/L Procalcitonin 0.05 (<0.5) ng/mL Urine Dip Bedside Urine Glucose Negative Bedside Urine Bilirubin - Negative Bedside Urine Ketone - Negative Urine Specific [place] 1.015 Bedside Urine Occult Blood - Negative Bedside Urine pH 6.5 Bedside Urine Protein - Negative Bedside Urine Urobilinogen - Negative Bedside Urine Nitrite - Negative Bedside Urine Leukocytes - Negative Esterase MDM Narrative Medical decision making narrative: Patient with reassuring history and physical exam, very low suspicion of intra-abdominal pathology, history and physical are most consistent with a superficial abdominal wall infection that has failed with the use of topicals and now is appropriate for systemic antibiotic coverage. She is appropriate for discharge, return precautions discussed, paperwork sent to Wound Care and patient encouraged to follow closely with her primary care provider Discharge Plan Departure Patient Disposition: Home Clinical Impression: Infected wound Instructions: DI for Wound Infection Activity Restrictions/Additional Instructions: *You have been diagnosed with [poorly healing wounds of abdominal wall] *What to do: *Please continue to take your regular medications as directed. [x ] New medication prescriptions sent to your pharmacy: [ [facility]] [ ] New medication written as a paper prescription [ ] No new medications given *Please follow up with your primary care provider in 2-3 days, call for an appointment. Let them know you were seen in the Emergency Department and that we ask that you be seen in follow up. We will electronically transmit a record of today's note if your PCP is in our system *If you do not have a primary care provider please contact the [facility] Resource line at [phone]. They will ask some questions about your medical history and help get you set up with a doctor in the community. * ALSO, WE DISCUSSED I HAVE FAXED A REFERRAL TO THE [facility]OUND [facility]ARE [facility] THEY WILL LIKELY PLAY A ROLE *Return to Emergency Department if you should have any new, worsening or concerning symptoms Prescriptions: New doxycycline hyclate 100 mg tablet 100 mg PO BID Qty: 20 0RF No Action fluticasone propionate 16 GM spray,suspension 1 spray Intranasal DAILY Qty: 0 cholecalciferol (vitamin D3) [Vitamin D3] 1,000 UNIT tablet 2,000 iu PO Q DAY Qty: 0 liothyronine [Cytomel] 5 MCG tablet 5 mcg PO QAM Qty: 0 spironolactone 50 mg tablet 50 mg PO DAILY Qty: 90 3RF famotidine [Pepcid] 20 mg tablet 20 mg PO DAILY Qty: 90 3RF simvastatin 20 mg tablet See Rx Instructions .ROUTE .COMPLEX Qty: 90 2RF Dose Instruction: take 1 tablet by mouth at bedtime Rx Instructions: take 1 tablet by mouth at bedtime methotrexate sodium 2.5 mg tablet 10 mg PO QWEEK Rx Instructions: take 4 tablet in the morning and 4 tablets at night once a week folic acid 1 mg tablet 1 mg PO DAILY meloxicam 15 mg tablet 15 mg PO DAILY PRN (Reason: Pain) Qty: 90 3RF levothyroxine 150 mcg Tablet 150 mcg PO DAILY Referrals: Mickey Oliva MD [Primary Care Provider] - Homer Mena MD [Physician] - Visit Report Forms: Patient Portal/API
[2021-10-25 19:23] LABS: Procalcitonin 0.05 ng/mL (<0.5)
[2021-10-25 19:30] VITALS: PULSE 93; RESP 43; O2SAT 92
[2021-10-25 20:00] VITALS: PULSE 102; RESP 24; O2SAT 98
[2021-10-25] MEDS: SODIUM CHLORIDE 0.9% 1,000 ML 1000 ML IV (20:26)
[2021-10-25] MEDS: DOXYCYCLINE 100 MG in SODIUM CHLORIDE 0.9% 100 ML IV (20:27)
[2021-10-25 20:30] VITALS: PULSE 81; RESP 16; O2SAT 97
--- NOTE | 2021-11-17 13:19 | PC.NURSE ---
late entry: NS and doxycycline IV started at 2025. completed at 2199.
== END 2021-10-25 22:00 | disposition home or self-care (01) ==
PROVIDERS: Emergency Provider Emergency Medicine; PCP Student in an Organized Health Care Education/Training Program
DX: L02.211 Cutaneous abscess of abdominal wall (principal)
CPT/HCPCS: 36415; 71045; 80053; 81003; 83605; 83690; 84145; 85025; 87040; 96365; 96366; 99284

== ENCOUNTER → 2021-11-04 09:20 | Outpatient (CLI) | payer MEDICARE, OTHER, SELFPAY ==
[2017-10-10 18:20] VITALS: BMI 56.2
== END ==
PROVIDERS: PCP Student in an Organized Health Care Education/Training Program; Referring Provider Emergency Medicine; Visit Provider Family Medicine
DX: S31.100A Unspecified open wound of abdominal wall, right upper quadrant without penetration into peritoneal cavity, initial encounter (principal); S31.101A Unspecified open wound of abdominal wall, left upper quadrant without penetration into peritoneal cavity, initial encounter; L08.89 Other specified local infections of the skin and subcutaneous tissue; M06.9 Rheumatoid arthritis, unspecified; Z68.44 Body mass index [BMI] 60.0-69.9, adult; E66.09 Other obesity due to excess calories
CPT/HCPCS: 87070; 87075; 87077; 87102; 87116; 87186; 87205; 87206; 97597; 99213; 99214

== ENCOUNTER → 2021-11-18 13:43 | Outpatient (CLI) | payer MEDICARE, OTHER, SELFPAY ==
[2017-10-10 18:20] VITALS: BMI 56.2
== END ==
PROVIDERS: PCP Student in an Organized Health Care Education/Training Program; Referring Provider Student in an Organized Health Care Education/Training Program; Visit Provider Family Medicine
DX: S31.109A Unspecified open wound of abdominal wall, unspecified quadrant without penetration into peritoneal cavity, initial encounter (principal); S31.101A Unspecified open wound of abdominal wall, left upper quadrant without penetration into peritoneal cavity, initial encounter; S71.102A Unspecified open wound, left thigh, initial encounter; M06.9 Rheumatoid arthritis, unspecified; Z68.44 Body mass index [BMI] 60.0-69.9, adult; L08.89 Other specified local infections of the skin and subcutaneous tissue; B95.7 Other staphylococcus as the cause of diseases classified elsewhere; E66.09 Other obesity due to excess calories
CPT/HCPCS: 11042; 87070; 87075; 87077; 87186; 87205; 99214

== ENCOUNTER → 2021-12-09 13:21 | Outpatient (CLI) | payer MEDICARE, OTHER, SELFPAY ==
[2017-10-10 18:20] VITALS: BMI 56.2
== END ==
PROVIDERS: PCP Student in an Organized Health Care Education/Training Program; Referring Provider Student in an Organized Health Care Education/Training Program; Visit Provider Family Medicine
DX: S31.100A Unspecified open wound of abdominal wall, right upper quadrant without penetration into peritoneal cavity, initial encounter (principal); M06.9 Rheumatoid arthritis, unspecified; Z68.44 Body mass index [BMI] 60.0-69.9, adult; E66.01 Morbid (severe) obesity due to excess calories
CPT/HCPCS: 99213

== ENCOUNTER → 2022-01-06 14:42 | Outpatient (CLI) | payer MEDICARE, OTHER, SELFPAY ==
[2017-10-10 18:20] VITALS: BMI 56.2
== END ==
PROVIDERS: PCP Student in an Organized Health Care Education/Training Program; Referring Provider Student in an Organized Health Care Education/Training Program; Visit Provider Family Medicine
DX: S31.100D Unspecified open wound of abdominal wall, right upper quadrant without penetration into peritoneal cavity, subsequent encounter (principal); M06.9 Rheumatoid arthritis, unspecified; Z68.44 Body mass index [BMI] 60.0-69.9, adult
CPT/HCPCS: 99212

== ENCOUNTER → 2022-08-09 09:07 | Outpatient (CLI) | payer MEDICARE, OTHER, SELFPAY ==
[2017-10-10 18:20] VITALS: BMI 56.2
--- NOTE | 2022-08-09 | DI.MG.S_ITS ---
BILATERAL DIGITAL SCREENING MAMMOGRAM 3D/2D WITH CAD: 08/09/2022 CLINICAL: Routine screening. Comparison is made to exams dated: 09/16/2016 mammogram, 09/06/2014 mammogram, and 06/04/2013 mammogram - [facility]. Both breasts are almost entirely fatty (category a/<25% glandular tissue). Current study was also evaluated with a Computer Aided Detection (CAD) system. There is a biopsy clip in the left breast. No significant masses, calcifications, or other findings are seen in either breast. There has been no significant interval change. IMPRESSION: NEGATIVE There is no mammographic evidence of malignancy. A 1 year screening mammogram is recommended. Based on the Tyrer Cuzick model (a risk assessment model) the patient's lifetime risk is 2.4% and her 10 year risk is 1.5%. According to the ACR, ACS, and NCCN guidelines, an annual breast MRI exam along with mammogram is recommended if the patient's lifetime risk is 20% or greater. This exam was interpreted at Station ID: [id number]. NOTE: For mammograms, a report in lay terms will be sent to the patient. Approximately 15% of breast malignancies will not be visualized mammographically. In the management of a palpable breast mass, a negative mammogram must not discourage biopsy of a clinically suspicious lesion. Electronically Signed By: Gianni gutierrez/cherie:08/09/2022 12:23:18 letter sent: Normal Exam ACR BI-RADS Category 1: Negative 3341F
--- NOTE | 2022-08-09 09:48 | DI.DEXA.S_ITS ---
Bone Density Report Name: JACQUELINE KIRK Age: 71 Sex: Female Ethnicity: White Date of : 1950 Indication: osteopenia; Referring Provider: JULIET STEWART Study: Bone densitometry was performed. Exam Date: August 09, 2022 Accession number: [id number] Bone Density: Region BMD T-score Z-score Classification AP Spine(L1-L4) 0.939 -1.0 1.2 Normal Femoral Neck (Left) 0.734 -1.0 0.8 Normal Total Hip (Left) 0.859 -0.7 0.9 Normal Femoral Neck (Right) 0.807 -0.4 1.5 Normal Total Hip (Right) 0.940 0.0 1.5 Normal Total Hip Mean 0.899 -0.4 1.2 Normal World Health Organization criteria for BMD impression classify patients as: Normal (T-score at or above -1.0), Osteopenia (T-score between -1.0 and -2.5), or Osteoporosis (T-score at or below -2.5). 10-year Fracture Risk: FRAX not reported because: All T-scores for Spine Total, Hip Total, Femoral Neck at or above -1.0 Previous Exams: -- Region Exam Age BMD T-score BMD Change BMD Change Date g/cm2 vs Baseline vs Previous -- AP Spine (L1-L4) 08/09/2022 71 0.939 -1.0 0.023 (2.5%)# 0.023 (2.5%)# 08/04/2007 56 0.917 -1.2 Total Hip(Left) 08/09/2022 71 0.859 -0.7 -0.088 (-9.3%)# -0.088 (-9.3%)# 08/04/2007 56 0.946 0.0 Total Hip(Right) 08/09/2022 71 0.940 0.0 0.019 (2.1%)# 0.019 (2.1%)# 08/04/2007 56 0.921 -0.2 -- *Denotes significance at 95% confidence level, LSC for AP Spine = 0.022 g/cm2, LSC for Total Hip = 0.027 g/cm2 # Denotes dissimilar scan types or analysis methods Impression: The patient has normal bone mass. No significant bone loss was observed. Discussion: BONE DENSITY IS ABOVE THE MINIMUM DESIRABLE LEVEL AT ALL SKELETAL SITES TESTED. This patient?s bone mineral density is above the minimum desirable level (T-score -1.0 or better) at all sites measured. The patient should follow a healthful lifestyle (good nutrition with adequate calcium and vitamin D, and appropriate weight-bearing exercise). Follow-Up: Consider repeating this study in 5 years or sooner if there is some new clinical indication. Reported by: CORA BENJAMIN MD on 08/09/2022 10:00:00 AM.
== END ==
PROVIDERS: PCP Student in an Organized Health Care Education/Training Program; Referring Provider Student in an Organized Health Care Education/Training Program; Visit Provider Student in an Organized Health Care Education/Training Program
DX: Z12.31 Encounter for screening mammogram for malignant neoplasm of breast (principal); Z13.820 Encounter for screening for osteoporosis; M06.9 Rheumatoid arthritis, unspecified; Z78.0 Asymptomatic menopausal state
CPT/HCPCS: 77063; 77067; 77080

== ENCOUNTER → 2022-08-11 11:08 | Outpatient (CLI) | payer MEDICARE, OTHER, SELFPAY ==
[2017-10-10 18:20] VITALS: BMI 56.2
[2022-08-11 14:10] LABS: Cholesterol 164 mg/dL (140-199); HDL Cholesterol 67 mg/dL (40-60); LDL Cholesterol Calculated 78 mg/dL (<100); Triglycerides 93 mg/dL (35-150)
[2022-08-11 14:26] LABS: Free T4, Direct Thyroxine 1.89 ng/dL (0.78-2.19)
[2022-08-11 14:40] LABS: Thyroid Stimulating Hormone 0.588 uIU/mL (0.47-4.68)
== END ==
PROVIDERS: PCP Student in an Organized Health Care Education/Training Program; Referring Provider Internal Medicine Endocrinology, Diabetes & Metabolism; Visit Provider Internal Medicine Endocrinology, Diabetes & Metabolism
DX: E89.0 Postprocedural hypothyroidism (principal); E78.00 Pure hypercholesterolemia, unspecified
CPT/HCPCS: 36415; 80061; 84439; 84443

== ENCOUNTER → 2022-11-02 11:43 | Outpatient (CLI) | payer MEDICARE, OTHER, SELFPAY ==
[2017-10-10 18:20] VITALS: BMI 56.2
== END ==
PROVIDERS: PCP Student in an Organized Health Care Education/Training Program; Visit Provider Physician Assistant
DX: L98.9 Disorder of the skin and subcutaneous tissue, unspecified (principal)
CPT/HCPCS: 87070; 87075; 87077; 87185; 87186; 87205

== ENCOUNTER → 2022-11-05 11:55 | Outpatient (CLI) | payer MEDICARE, OTHER, SELFPAY ==
[2017-10-10 18:20] VITALS: BMI 56.2
== END ==
PROVIDERS: PCP Student in an Organized Health Care Education/Training Program; Referring Provider Physician Assistant; Visit Provider Physician Assistant
DX: S71.001A Unspecified open wound, right hip, initial encounter (principal); S31.109A Unspecified open wound of abdominal wall, unspecified quadrant without penetration into peritoneal cavity, initial encounter; S71.102A Unspecified open wound, left thigh, initial encounter; S71.002A Unspecified open wound, left hip, initial encounter; S21.001A Unspecified open wound of right breast, initial encounter; E66.01 Morbid (severe) obesity due to excess calories; Z68.44 Body mass index [BMI] 60.0-69.9, adult
CPT/HCPCS: 11042; 11045; 99213; 99214

== ENCOUNTER → 2022-11-12 13:43 | Outpatient (CLI) | payer MEDICARE, OTHER, SELFPAY ==
[2017-10-10 18:20] VITALS: BMI 56.2
== END ==
PROVIDERS: PCP Student in an Organized Health Care Education/Training Program; Referring Provider Emergency Medicine; Visit Provider Physician Assistant
DX: S21.001A Unspecified open wound of right breast, initial encounter (principal); S71.001A Unspecified open wound, right hip, initial encounter; S31.109A Unspecified open wound of abdominal wall, unspecified quadrant without penetration into peritoneal cavity, initial encounter; S81.802A Unspecified open wound, left lower leg, initial encounter; S71.002A Unspecified open wound, left hip, initial encounter; Z68.44 Body mass index [BMI] 60.0-69.9, adult; E66.01 Morbid (severe) obesity due to excess calories; M79.3 Panniculitis, unspecified
CPT/HCPCS: 11042; 11045; 99214

== ENCOUNTER → 2022-11-15 14:33 | Outpatient (CLI) | payer MEDICARE, OTHER, SELFPAY ==
[2017-10-10 18:20] VITALS: BMI 56.2
== END ==
PROVIDERS: PCP Student in an Organized Health Care Education/Training Program; Referring Provider Student in an Organized Health Care Education/Training Program; Visit Provider Surgery
DX: S31.109A Unspecified open wound of abdominal wall, unspecified quadrant without penetration into peritoneal cavity, initial encounter (principal); S71.001A Unspecified open wound, right hip, initial encounter; S71.002A Unspecified open wound, left hip, initial encounter; S21.001A Unspecified open wound of right breast, initial encounter; E66.01 Morbid (severe) obesity due to excess calories; M79.3 Panniculitis, unspecified
CPT/HCPCS: 11042; 11045; 99213

== ENCOUNTER → 2022-11-23 13:53 | Outpatient (CLI) | payer MEDICARE, OTHER, SELFPAY ==
[2017-10-10 18:20] VITALS: BMI 56.2
== END ==
PROVIDERS: PCP Student in an Organized Health Care Education/Training Program; Referring Provider Emergency Medicine; Visit Provider Surgery
DX: M79.3 Panniculitis, unspecified (principal); S71.001A Unspecified open wound, right hip, initial encounter; S31.109A Unspecified open wound of abdominal wall, unspecified quadrant without penetration into peritoneal cavity, initial encounter; S71.102A Unspecified open wound, left thigh, initial encounter; S71.002A Unspecified open wound, left hip, initial encounter; M79.605 Pain in left leg; S21.001A Unspecified open wound of right breast, initial encounter; L53.9 Erythematous condition, unspecified; R21 Rash and other nonspecific skin eruption
CPT/HCPCS: 99213

== ENCOUNTER → 2022-11-30 13:50 | Outpatient (CLI) | payer MEDICARE, OTHER, SELFPAY ==
[2017-10-10 18:20] VITALS: BMI 56.2
== END ==
PROVIDERS: PCP Student in an Organized Health Care Education/Training Program; Referring Provider Emergency Medicine; Visit Provider Surgery
DX: S71.001A Unspecified open wound, right hip, initial encounter (principal); S31.109A Unspecified open wound of abdominal wall, unspecified quadrant without penetration into peritoneal cavity, initial encounter; S21.001D Unspecified open wound of right breast, subsequent encounter
CPT/HCPCS: 99213

== ENCOUNTER → 2022-12-14 14:09 | Outpatient (CLI) | payer MEDICARE, OTHER, SELFPAY ==
[2017-10-10 18:20] VITALS: BMI 56.2
== END ==
PROVIDERS: PCP Student in an Organized Health Care Education/Training Program; Referring Provider Emergency Medicine; Visit Provider Surgery
DX: S71.001A Unspecified open wound, right hip, initial encounter (principal); S71.002A Unspecified open wound, left hip, initial encounter; E66.01 Morbid (severe) obesity due to excess calories; M06.9 Rheumatoid arthritis, unspecified
CPT/HCPCS: 99213

== ENCOUNTER → 2022-12-21 12:57 | Outpatient (CLI) | payer MEDICARE, OTHER, SELFPAY ==
[2017-10-10 18:20] VITALS: BMI 56.2
== END ==
PROVIDERS: PCP Student in an Organized Health Care Education/Training Program; Referring Provider Emergency Medicine; Visit Provider Surgery
DX: L98.492 Non-pressure chronic ulcer of skin of other sites with fat layer exposed (principal); E66.01 Morbid (severe) obesity due to excess calories; Z68.44 Body mass index [BMI] 60.0-69.9, adult
CPT/HCPCS: 99213

== ENCOUNTER → 2022-12-27 10:15 | Outpatient (CLI) | payer MEDICARE, OTHER, SELFPAY ==
[2017-10-10 18:20] VITALS: BMI 56.2
== END ==
PROVIDERS: PCP Student in an Organized Health Care Education/Training Program; Referring Provider Emergency Medicine; Visit Provider Surgery
DX: S71.001A Unspecified open wound, right hip, initial encounter (principal); S31.109D Unspecified open wound of abdominal wall, unspecified quadrant without penetration into peritoneal cavity, subsequent encounter; E66.01 Morbid (severe) obesity due to excess calories; Z68.44 Body mass index [BMI] 60.0-69.9, adult
CPT/HCPCS: 99212; 99213

== ENCOUNTER 2023-01-05 11:49 | Emergency (ER) | payer MEDICARE, OTHER, SELFPAY ==
[2017-10-10 18:20] VITALS: BMI 56.2
[2023-01-05 11:50] VITALS: BP 179/90; PULSE 78; RESP 20; TEMP 36.5; O2SAT 99; BMI 64.0
--- NOTE | 2023-01-05 12:11 | DI.RAD.S_ITS ---
PROCEDURE: XR ANKLE LT MIN 3V INDICATIONS: ankle pain TECHNIQUE: 3 views of the ankle were acquired. COMPARISON: [facility], , ANKLE 3 VIEWS LEFT, 09/10/2015, 16:10. FINDINGS: Bones: No fractures or dislocations. Ankle mortise is normally aligned. No suspicious bony lesions. Degenerative changes of the tibiotalar joint. Plantar calcaneal spurring. Decreased osseous mineralization. Soft tissues: No tibiotalar joint effusion. Achilles tendon appears normal. IMPRESSION: No acute osseous abnormality. If pain persists with conservative management, consider repeat x-ray in 10-14 days or cross-sectional imaging. Dictated by: Rigoberto Leal M.D. on 01/05/2023 at 12:44 Approved by: Rigoberto Leal M.D. on 01/05/2023 at 12:49
--- NOTE | 2023-01-05 12:41 | ED_ITS ---
HPI - Extremity Problem <Sheri Thomas PA-C - Last Filed: 01/05/23 13:58> General Chief complaint: Extremity Problem,Nontraumatic Stated complaint: lt ankle pain moving up leg Time Seen by Provider: 01/05/23 12:22 Source: patient Mode of arrival: Ambulatory History of Present Illness HPI Narrative: Patient is a 72-year-old female who presents with left ankle pain and swelling x2 weeks. She does not recall twisting or injuring the ankle. She has been elevating it, taking Tylenol, applying ice, soaking it without improvement. She thought she just pulled something it would get better but has not gotten better over 2 weeks. She now reports the pain is shooting up the lateral side of her lower leg. The pain in her ankle sometimes shoots around the ankle. There is also swelling of the ankle if she is up on her feet a lot during the day her whole foot will be swollen. She denies any history of neuropathy. She is morbidly obese and has limited ambulation at baseline. Since the pain started, she is barely been able to walk. She has a history of rheumatoid arthritis, is on methotrexate weekly and sees her parts counter salesperson every 3 months. She denies any recent flare in her arthritis symptoms that might be contributing to this. Related Data Home Medications Medication Instructions Recorded Confirmed cholecalciferol (vitamin D3) 25 2,000 iu PO Q DAY ##0 08/17/10 05/20/22 mcg (1,000 unit) tablet (Vitamin D3) fluticasone propionate 50 1 spray intranasal DAILY ##0 08/17/10 05/20/22 mcg/actuation nasal spray,suspension liothyronine 5 mcg tablet (Cytomel) 5 mcg PO QAM ##0 10/11/11 05/20/22 levothyroxine 150 mcg tablet 150 mcg PO DAILY 09/21/17 05/20/22 folic acid 1 mg tablet 1 mg PO DAILY 03/05/21 05/20/22 methotrexate sodium 2.5 mg tablet 10 mg PO QWEEK 03/05/21 05/20/22 Previous Rx's Medication Instructions Recorded famotidine 20 mg tablet (Pepcid) 20 mg PO DAILY #90 tabs 05/20/22 meloxicam 15 mg tablet 15 mg PO DAILY #90 tabs 05/20/22 simvastatin 20 mg tablet 20 mg PO BEDTIME #90 tabs 05/20/22 spironolactone 50 mg tablet 50 mg PO DAILY #90 tabs 05/20/22 triamcinolone acetonide 0.1 % 1 applic topical BID Skin 09/30/22 topical cream Irritation/Dermatitis #453.6 grams Disabled Parking #1 ea 01/04/23 Allergies Allergy/AdvReac Type Severity Reaction Status Date / Time Penicillins [PENICILLINS] Allergy Severe HIVES/ITCHING, Verified 05/20/22 09:04 TOLERATES CEFOTETAN anchovies Allergy Severe Swelling Uncoded 05/20/22 09:04 of eyes, mouth Review of Systems <Sheri Thomas PA-C - Last Filed: 01/05/23 13:58> Review of Systems ROS Unobtainable: All systems reviewed & are unremarkable except as noted in HPI and below Patient History <Sheri Thomas PA-C - Last Filed: 01/05/23 13:58> Medical History Thyroid nodule Joint pain Hypothyroidism Bruises easily History of neutropenia Chronic knee pain Chronic shoulder pain Hyperlipidemia Lower extremity edema Surgical History H/O thumb surgery (~2007) S/P tendon repair (~1977) S/P tendon repair (~1973) H/O knee surgery (~2012) H/O knee surgery (~2011) History of (~1978) History of (~1975) History of bilateral tubal ligation History of colonoscopy History of cholecystectomy (~1995) History of laparoscopic appendectomy (~2014) History of discectomy (~2005) Hx of total knee arthroplasty (~2017) H/O thyroidectomy (~2009) History of (~1972) History of tonsillectomy (~1998) Status post cholecystectomy (~1995) Family History Father No problems noted. Mother COPD (chronic obstructive pulmonary disease) Brother Brain bleed Sister COPD (chronic obstructive pulmonary disease) Grandfather Cancer Grandmother No problems noted. Social History household members: spouse Smoking Status: Never smoker alcohol intake: current Smoking Status: Never smoker alcohol intake frequency: holidays/special occasions only Substance Use Type: does not use Exam <Sheri Thomas PA-C - Last Filed: 01/05/23 13:58> Narrative Exam Narrative: GENERAL: 72 year old patient appears stated age. Morbidly obese. Well- developed patient, in no distress. NEURO: AOx3. HEAD: Atraumatic. Normocephalic. EYES: Pupils equal round and reactive. Extraocular motions intact. No scleral icterus. No injection or drainage. ENT: Nose without bleeding or purulent drainage. Airway patent. RESPIRATORY: No distress EXTREMITIES: Patient with edema over the lateral aspect of her left ankle when compared to the right. There is tenderness to palpation over the lateral malleolus of the left ankle. DP pulses intact. Foot with 1+ edema. Calf is not edematous or erythematous on exam. Palpation of underlying structures is difficult due to body habitus. SKIN: No rash or erythema of visible areas Initial Vital Signs Initial Vital Signs: Vital Signs Temperature 97.7 F 01/05/23 11:50 Pulse Rate 78 01/05/23 11:50 Respiratory Rate 20 01/05/23 11:50 Blood Pressure 179/90 H 01/05/23 11:50 Pulse Oximetry 99 01/05/23 11:50 Oxygen Delivery Method Room Air 01/05/23 11:50 <Shaun Rodriguez MD - Last Filed: 01/05/23 18:55> Initial Vital Signs Initial Vital Signs: Vital Signs Temperature 97.7 F 01/05/23 11:50 Pulse Rate 78 01/05/23 11:50 Respiratory Rate 20 01/05/23 11:50 Blood Pressure 179/90 H 01/05/23 11:50 Pulse Oximetry 99 01/05/23 11:50 Oxygen Delivery Method Room Air 01/05/23 11:50 Scores <Sheri Thomas PA-C - Last Filed: 01/05/23 13:58> Wells' Criteria for DVT Active Cancer (Treatment within 6 months): No Bedridden recently >3 days or major surgery within 4 weeks: No Calf Swelling >3cm compared to other leg: No Collateral (nonvericose) superficial veins present: No Entire leg swollen: No Localized tenderness along the deep vein system: No Pitting edema, confined to symtomatic leg: No Paralysis, paresis, or recent plaster immobilization of ext: No Previously documented DVT: No Alternative dx to DVT as likely or more likely: Yes Vidal' criteria for DVT: -2 <Shaun Rodriguez MD - Last Filed: 01/05/23 18:55> Vianney Criteria for DVT Vidal' criteria for DVT: -2 Course <Sheri Thomas PA-C - Last Filed: 01/05/23 13:58> Orders Ordered: ED Orders 01/05/23 12:11 XR ankle LT min 3V Stat Vital Signs Vital signs: Vital Signs - 8 hr 01/05/23 11:50 01/05/23 13:56 Temperature 97.7 F Pulse Rate 78 80 Respiratory Rate 20 20 Blood Pressure 179/90 H 164/75 H Pulse Oximetry 99 97 Oxygen Delivery Method Room Air Room Air <Shaun Rodriguez MD - Last Filed: 01/05/23 18:55> Orders Ordered: ED Orders 01/05/23 12:11 XR ankle LT min 3V Stat Vital Signs Vital signs: Vital Signs - 8 hr 01/05/23 11:50 01/05/23 13:56 Temperature 97.7 F Pulse Rate 78 80 Respiratory Rate 20 20 Blood Pressure 179/90 H 164/75 H Pulse Oximetry 99 97 Oxygen Delivery Method Room Air Room Air MDM - Extremity (Nontraumatic) <Sheri Thomas PA-C - Last Filed: 01/05/23 13:58> Imaging Data Extremity x-ray #1: Radiologist's Impression: PROCEDURE: XR ANKLE LT MIN 3V INDICATIONS: ankle pain TECHNIQUE: 3 views of the ankle were acquired. COMPARISON: [facility], , ANKLE 3 VIEWS LEFT, 09/10/2015, 16:10. FINDINGS: Bones: No fractures or dislocations. Ankle mortise is normally aligned. No suspicious bony lesions. Degenerative changes of the tibiotalar joint. Plantar calcaneal spurring. Decreased osseous mineralization. Soft tissues: No tibiotalar joint effusion. Achilles tendon appears normal. IMPRESSION: No acute osseous abnormality. If pain persists with conservative management, consider repeat x-ray in 10-14 days or cross-sectional imaging. Dictated by: Rigoberto Leal M.D. on 01/05/2023 at 12:44 Approved by: Rigoberto Leal M.D. on 01/05/2023 at 12:49 MDM Narrative Medical decision making narrative: Multiple etiologies for patient's symptoms considered including, but not limited to: Ankle sprain, ankle fracture, DVT, cellulitis, septic joint, gout, rheumatoid arthritis flare. X-ray without evidence of bony abnormality. Patient reports no history of injury, making sprain less likely. She is no history of DVT and is a wells score 9- 2, making DVT unlikely. There is no evidence of cellulitis or septic joint including no edema, no erythema, no warmth, and no fever. She has no history of gout and the joint is not erythematous. I suspect this joint pain may be due to rheumatoid arthritis. She reports it is reasonably easy to contact her parts counter salesperson and I suggested she do this. Patient's symptoms improved over duration of stay with above-stated therapies. Findings and discharge diagnosis discussed with patient/family followed by verbalization of understanding Return precautions discussed with patient/family whom verbalize understanding of diagnosis and plan Discharge Plan Departure Patient Disposition: Home Clinical Impression: Ankle pain, left Qualifiers: Chronicity: acute Qualified Code(s): M25.572 - Pain in left ankle and joints of left foot Instructions: DI for Rheumatoid Arthritis Activity Restrictions/Additional Instructions: *You have been diagnosed with ankle pain. Your x-ray does not show any evidence of fracture. I would suggest contacting your parts counter salesperson's office and describing our findings today and coordinating with them in regards to treating this as a flare of her rheumatoid arthritis. Alternately, X-rays are not good at showing as things in the soft tissues, including the nerves, tendons or ligaments, which may be injured or inflamed. Your parts counter salesperson may want to c onsider ordering an MRI of your ankle in order to further evaluate. Unfortunately, this is not something that is indicated through the emergency department. In the meantime, you can continue taking Tylenol, using compression, and ice. *What to do: *Please continue to take your regular medications as directed. [ ] New medication prescriptions sent to your pharmacy: [ ] [ ] New medication written as a paper prescription [x] No new medications given *Please follow up with your primary care provider in 2-3 days, call for an appointment. Let them know you were seen in the Emergency Department and that we ask that you be seen in follow up. We will electronically transmit a record of today's note if your PCP is in our system *If you do not have a primary care provider please contact the [facility] Resource line at [phone]. They will ask some questions about your medical history and help get you set up with a doctor in the community. *Return to Emergency Department if you should have any new, worsening or concerning symptoms, such as [fever greater than 101 F, shaking chills, worsening pain, persistent vomiting or other concerning symptoms]. Prescriptions: No Action fluticasone propionate 16 GM spray,suspension 1 spray Intranasal DAILY Qty: 0 cholecalciferol (vitamin D3) [Vitamin D3] 1,000 UNIT tablet 2,000 iu PO Q DAY Qty: 0 liothyronine [Cytomel] 5 MCG tablet 5 mcg PO QAM Qty: 0 triamcinolone acetonide 0.1 % cream 1 applic topical BID Qty: 453.6 1RF (DME) Disabled Parking See Rx Instructions .ROUTE .MEDSUPPLY Qty: 1 0RF Rx Instructions: Patient qualifies for disabled parking as per the attached form. methotrexate sodium 2.5 mg tablet 10 mg PO QWEEK Rx Instructions: take 4 tablet in the morning and 4 tablets at night once a week folic acid 1 mg tablet 1 mg PO DAILY famotidine [Pepcid] 20 mg tablet 20 mg PO DAILY Qty: 90 3RF meloxicam 15 mg tablet 15 mg PO DAILY Qty: 90 3RF simvastatin 20 mg tablet 20 mg PO BEDTIME Qty: 90 3RF Hold Instructions: needs labs spironolactone 50 mg tablet 50 mg PO DAILY Qty: 90 3RF levothyroxine 150 mcg Tablet 150 mcg PO DAILY Referrals: Juventino Bernstein, [Primary Care Provider] - Stand Alone Forms: Patient Portal/API
[2023-01-05 13:56] VITALS: BP 164/75; PULSE 80; RESP 20; O2SAT 97
== END 2023-01-05 13:57 | disposition home or self-care (01) ==
PROVIDERS: Emergency Provider Physician Assistant; PCP Family Medicine
DX: M25.572 Pain in left ankle and joints of left foot (principal)
CPT/HCPCS: 73610; 99283

== ENCOUNTER → 2023-01-10 10:53 | Outpatient (CLI) | payer MEDICARE, OTHER, SELFPAY ==
[2017-10-10 18:20] VITALS: BMI 56.2
== END ==
PROVIDERS: PCP Family Medicine; Referring Provider Surgery Vascular Surgery; Visit Provider Surgery
DX: L98.492 Non-pressure chronic ulcer of skin of other sites with fat layer exposed (principal); M79.3 Panniculitis, unspecified; E66.01 Morbid (severe) obesity due to excess calories; Z68.44 Body mass index [BMI] 60.0-69.9, adult
CPT/HCPCS: 17250; 99213

== ENCOUNTER → 2023-01-24 10:03 | Outpatient (CLI) | payer MEDICARE, OTHER, SELFPAY ==
[2017-10-10 18:20] VITALS: BMI 56.2
== END ==
PROVIDERS: PCP Family Medicine; Referring Provider Emergency Medicine; Visit Provider Surgery
DX: S71.001D Unspecified open wound, right hip, subsequent encounter (principal)
CPT/HCPCS: 99212; 99213

== ENCOUNTER 2023-06-10 13:59 | Day surgery (SDC) | payer MEDICARE, OTHER, SELFPAY ==
[2017-10-10 18:20] VITALS: BMI 56.2
[2023-06-10] VITALS (7 sets, daily range): BP systolic 120–150; BP diastolic 52–82; PULSE 78–109; RESP 14–20; TEMP 36.1–36.4; O2SAT 95–100
[2023-06-10] MEDS: LACTATED RINGERS 1,000 ML 42 ML IV (14:36)
--- NOTE | 2023-06-10 14:48 | P.HP_ITS ---
History of Present Illness History of Present Illness Date Patient Seen: 06/10/23 Time Patient Seen: 14:48 Chief complaint: Colonoscopy Narrative: 72-year-old woman here for screening colonoscopy. Her son was recently diagnosed with locally advanced colon cancer. Her last colonoscopy was 10 years ago normal. She has no abdominal concerns today. [facility] Medical History Closed left ankle fracture Rheumatoid disease Family history of colon cancer Thyroid nodule Joint pain Hypothyroidism Bruises easily History of neutropenia Chronic knee pain Chronic shoulder pain Hyperlipidemia Lower extremity edema Surgical History H/O thumb surgery (~2007) S/P tendon repair (~1977) S/P tendon repair (~1973) H/O knee surgery (~2012) H/O knee surgery (~2011) History of (~1978) History of (~1975) History of bilateral tubal ligation History of colonoscopy History of cholecystectomy (~1995) History of laparoscopic appendectomy (~2014) History of discectomy (~2005) Hx of total knee arthroplasty (~2017) H/O thyroidectomy (~2009) History of (~1972) History of tonsillectomy (~1998) Status post cholecystectomy (~1995) Family History Father No problems noted. Mother COPD (chronic obstructive pulmonary disease) Brother Brain bleed Sister COPD (chronic obstructive pulmonary disease) Grandfather Cancer Grandmother No problems noted. Social History household members: spouse Smoking Status: Never smoker alcohol intake: current Meds Home Medications and Allergies Home Medications Medication Instructions Recorded Confirmed Type cholecalciferol (vitamin D3) 25 2,000 iu PO Q DAY ##0 08/17/10 03/10/23 History mcg (1,000 unit) tablet (Vitamin D3) fluticasone propionate 50 1 spray intranasal DAILY ##0 08/17/10 03/10/23 History mcg/actuation nasal spray,suspension liothyronine 5 mcg tablet (Cytomel) 5 mcg PO QAM ##0 07/09/12 12/07/23 History levothyroxine 150 mcg tablet 150 mcg PO DAILY 09/21/17 06/10/23 History folic acid 1 mg tablet 1 mg PO DAILY 03/05/21 03/10/23 History meloxicam 15 mg tablet 15 mg PO DAILY #90 tabs 05/20/22 03/10/23 Rx simvastatin 20 mg tablet 20 mg PO BEDTIME #90 tabs 05/20/22 03/10/23 Rx Disabled Parking #1 ea 01/04/23 03/10/23 Rx lisinopril 10 mg tablet 10 mg PO DAILY #90 tabs 03/10/23 03/10/23 Rx methotrexate sodium 2.5 mg tablet 12.5 mg PO QWEEK 03/10/23 03/10/23 History sodium,potassium,mag sulfates 17.5 See Rx Instructions PO .COMPLEX 05/03/23 Rx gram-3.13 gram-1.6 gram oral soln #354 mL (Suprep Bowel Prep Kit) famotidine 20 mg tablet (Pepcid) 20 mg PO DAILY #90 tabs 05/16/23 Rx spironolactone 50 mg tablet 50 mg PO DAILY #90 tabs 05/16/23 Rx Allergies Allergy/AdvReac Type Severity Reaction Status Date / Time Penicillins [PENICILLINS] Allergy Severe HIVES/ITCHING, Verified 06/10/23 14:28 TOLERATES CEFOTETAN anchovies Allergy Severe Swelling Uncoded 03/10/23 13:10 of eyes, mouth Exam Vital Signs (past 8 hours): - 06/10/23 14:29 Temperature 97 F L Pulse Rate 109 H Respiratory Rate 16 Blood Pressure 150/82 H Pulse Oximetry 98 Oxygen Delivery Method Room Air Oxygen Delivery Method Room Air Narrative Exam Narrative: General adult woman alert oriented no acute distress Chest nonlabored respiration Extremities warm well perfused Assessment & Plan Assessment & Plan narrative: The patient requires colorectal screening and colonoscopy is recommended. Tech nical details were discussed. Risks, benefits, alternatives explained. Risks including but not limited to myocardial infarction, aspiration, bleeding, pain, missed lesion, incomplete examination, need for further radiographic studies, colonic perforation, and need for major abdominal surgery were discussed. All questions were answered to their satisfaction, and they are in agreement with this plan.
--- NOTE | 2023-06-10 14:52 | P.OP.COLON_ITS ---
Operative Date/Time/Diagnoses Date of procedure: 06/10/23 Time of procedure: 14:52 Pre-op diagnosis: Family history of colon cancer Procedure & Clinicians Study performed: Colonoscopy Same procedure as scheduled: Yes Indications: Colorectal screening Family history of colon cancer Surgeon: Tai Doran Procedure Notes Procedure in detail: The history and physical was performed/updated and the patient is ASA class is 3. The procedure was discussed in detail with the patient. Potential risks complications including infection, bleeding, missed diagnosis, perforation, need for surgery, and were explained. Their questions were answered and informed consent was obtained. Patient was brought to the procedure room and placed standard monitoring equipment. The patient's vital signs were monitored continuously throughout the entire procedure. Prior to starting time-out was performed. The patient was placed in the left lateral recumbent position. Procedural sedation was administered by anesthesia. Examination began with a thorough inspection of the perianal area there was no evidence of fissures, fistulae, external hemorrhoids or cutaneous malignancy. The colonoscopy scope was then placed into the anal canal and was advanced to the cecum, which was identified by the ileocecal valve, the appendiceal orifice and the confluence of the taenia. The scope was then slowly withdrawn examining colon thoroughly in all directions, irrigating it of any residual stool. The scope was retroflexed within the rectum The patient tolerated the procedure well. They will be discharged once criteria are met. The prep was of good/excellent quality. The withdrawl time was 7 minutes. FINDINGS * Normal colonoscopy. No masses polyps or inflammation. * Mild diverticulosis of descending colon. Specimen(s): none sent Impression: Normal colonoscopy Post-procedure Plan for aftercare: No further colonoscopy necessary unless symptomatic Disposition: same day surgery
== END 2023-06-10 16:21 | disposition home or self-care (01) ==
PROVIDERS: PCP Family Medicine; Referring Provider Surgery; Visit Provider Surgery
PROC: 0DJD8ZZ Inspection of Lower Intestinal Tract, Via Natural or Artificial Opening Endoscopic (ICD-10-PCS; CPT 45378; principal; 2023-06-10 13:30)
DX: Z12.11 Encounter for screening for malignant neoplasm of colon (principal); Z80.0 Family history of malignant neoplasm of digestive organs; K57.30 Diverticulosis of large intestine without perforation or abscess without bleeding
CPT/HCPCS: G0105; J0330; J1100; J2405; J3010

== ENCOUNTER → 2023-07-19 16:27 | Outpatient (CLI) | payer MEDICARE, OTHER, SELFPAY ==
[2017-10-10 18:20] VITALS: BMI 56.2
[2023-07-19 17:15] LABS: Influenza A - CEPHEID Flu A NEGATIVE (NEGATIVE); Influenza B - CEPHEID Flu B NEGATIVE (NEGATIVE); Respiratory Syncytial Virus Negative (Negative)
[2023-07-19 17:33] LABS: COVID-19 CEPHEID 4-PLEX PCR Negative (Negative)
== END ==
PROVIDERS: PCP Family Medicine; Visit Provider Physician Assistant Surgical
DX: R05.1 Acute cough (principal)
CPT/HCPCS: 0241U

== ENCOUNTER → 2023-08-16 10:34 | Outpatient (CLI) | payer MEDICARE, OTHER, SELFPAY ==
[2017-10-10 18:20] VITALS: BMI 56.2
[2023-08-16 11:36] LABS: Add Manual Diff / Slide Review NO; Basophils Absolute Auto 100 /uL (0-100); Basophils Percent Auto 1.3 % (0-2); Eosinophils Absolute Auto 200 /uL (0-450); Eosinophils Percent Auto 4.1 % (2-4); Hematocrit 38.9 % (36-46); Hemoglobin 13.2 g/dL (12.0-16.0); Lymphocytes Absolute Auto 1400 /uL (1100-4500); Lymphocytes Percent Auto 25.8 % (25-40); Mean Corpuscular HGB Conc 33.8 % (30-36); Mean Corpuscular Hemoglobin 33.4 PG (26-34); Mean Corpuscular Volume 98.6 fL (80-100); Monocytes Absolute Auto 600 /uL (0-900); Neutrophils Absolute Auto 3100 /uL (1500-7000); Neutrophils Percent Auto 57.8 % (50-75); Platelet Count 256 X10^3/uL (150-400); Red Blood Cell Count 3.94 X10^6/uL (4.0-5.2); White Blood Cell Count 5.3 X10^3/uL (4.5-11.0)
[2023-08-16 11:41] LABS: Hemoglobin A1C% w Est Avg Glu 5.3 % (4.0-6.0)
[2023-08-16 11:50] LABS: Alanine Aminotransferase 30 IU/L (<35); Albumin 4.3 g/dL (3.5-5.0); Albumin Globulin Ratio 1.5 (1.0-2.8); Alkaline Phosphatase 104 U/L (38-126); Aspartate Aminotransferase 28 IU/L (14-36); BUN Creatinine Ratio 24.7 (6-22); Bilirubin Total 0.5 mg/dL (0.2-1.3); Blood Urea Nitrogen 21 mg/dL (7-17); Calcium 9.3 mg/dL (8.4-10.2); Carbon Dioxide 26 mmol/L (22-32); Chloride 104 mmol/L (98-107); Cholesterol 153 mg/dL (140-199); Estimated Glomerular Filt Rate > 60 mL/min (>60); Globulin 2.9 g/dL (1.7-4.1); Glucose 92 mg/dL (80-110); HDL Cholesterol 50 mg/dL (40-60); HEMOLYSIS < 15 (0-50); LDL Cholesterol Calculated 87 mg/dL (<100); Potassium 4.6 mmol/L (3.4-5.1); Sodium 135 mmol/L (137-145); Total Protein 7.2 g/dL (6.3-8.2); Triglycerides 82 mg/dL (35-150)
[2023-08-16 12:01] LABS: Free T4, Direct Thyroxine 1.95 ng/dL (0.78-2.19)
[2023-08-16 12:15] LABS: Thyroid Stimulating Hormone 1.17 uIU/mL (0.47-4.68)
== END ==
PROVIDERS: PCP Family Medicine; Referring Provider Family Medicine; Visit Provider Family Medicine
DX: E03.9 Hypothyroidism, unspecified (principal); E78.00 Pure hypercholesterolemia, unspecified; E66.01 Morbid (severe) obesity due to excess calories; R53.83 Other fatigue
CPT/HCPCS: 36415; 80053; 80061; 83036; 84439; 84443; 85025

== ENCOUNTER → 2023-11-21 15:35 | Outpatient (CLI) | payer MEDICARE, OTHER, SELFPAY ==
[2017-10-10 18:20] VITALS: BMI 56.2
[2023-11-21 18:06] LABS: Free T4, Direct Thyroxine 1.35 ng/dL (0.78-2.19)
[2023-11-21 18:20] LABS: Thyroid Stimulating Hormone 2.54 uIU/mL (0.47-4.68)
== END ==
LOC: LAB 15:37
PROVIDERS: PCP Family Medicine; Referring Provider Internal Medicine Endocrinology, Diabetes & Metabolism; Visit Provider Internal Medicine Endocrinology, Diabetes & Metabolism
DX: E89.0 Postprocedural hypothyroidism (principal)
CPT/HCPCS: 36415; 84439; 84443

== ENCOUNTER → 2024-01-23 07:00 | Outpatient (CLI) | payer MEDICARE, OTHER, SELFPAY ==
[2017-10-10 18:20] VITALS: BMI 56.2
--- NOTE | 2024-01-23 07:01 | DI.ECHO.S_ITS ---
[facility] : : [address] : : [facility] : : [place], : : [place] [address] : : Phone: [phone] Echocardiogram Report + + :Name: JACQUELINE KIRK Study Date: 01/23/2024 Height: 62 in : :[facility] ReadingLocation: Weight: 360 lb: : Gender: Female BSA: 2.5 m2 : :: 1950 Age: 73 yrs : :Reason For Study: EXERTIONAL FATIGUE : :Ordering Physician: LEANNA, : :HAJA Performed By: Karl Dowling : :Referring: HAJA RAM : + + Interpretation Summary TDS - MORBID OBESITY, UNABLE TO POSITION FOR EXAM - SCANNED SUPINE This is a technically difficult study secondary to poor acoustic windows with improved visualization due to IV contrast. 1. The left ventricle contractility is normal. Estimate ejection fraction is greater than 60% with no segmental wall motion abnormalities. Mild concentric LVH. Normal diastolic function. 2. The right ventricular contractility appears preserved in limited views. 3. All cardiac chambers appears to be grossly normal in size. 4. The valves were poorly visualized. However no significant insufficiency nor stenoses appreciated on Doppler interrogation. 5. No obvious intracardiac shunts. 6. No intracardiac masses nor thrombi. 7. No obvious hemodynamically significant pericardial effusion. 8. Low right-sided filling pressures. Conclusion: Normal biventricular systolic function with no significant valvular abnormalities. Procedure: A two-dimensional transthoracic echocardiogram with color flow and Doppler was performed. A contrast injection of Definity was performed to improve assessment of LV function. The study quality was technically difficult. There is no prior echocardiogram noted for this patient. The patient was in normal sinus rhythm during the exam. Left Ventricle: The left ventricle is normal in size. There is mild concentric left ventricular hypertrophy. There is no ventricular septal defect visualized. The ejection fraction is estimated to be 60-65%. There are no focal wall motion abnormalities. Right Ventricle: The right ventricle is not well visualized. The right ventricular systolic function is normal. Atria: The left atrial size is normal. Right atrial size is normal. There is no Doppler evidence for an atrial septal defect. Mitral Valve: The mitral valve is grossly normal. The mitral valve is not well visualized. There is trace mitral regurgitation. Aortic Valve: The aortic valve is grossly normal. The aortic valve is not well visualized. No aortic regurgitation is present. Tricuspid Valve: The tricuspid valve is not well visualized, but is grossly normal. The tricuspid valve is not well visualized. There is trace tricuspid regurgitation. The right ventricular systolic pressure is estimated to be at least 21 mmHg based on an estimated right atrial pressure of 3 mm Hg. Pulmonic Valve: The pulmonic valve is not well visualized. There is trace pulmonic regurgitation. Great Vessels: The aortic root is normal size. The ascending aorta is at the upper limits of normal in size. The pulmonary artery is normal size. The IVC is of normal diameter and collapses greater than 50% with a sniff. This suggests a low right atrial pressure of 3 mm Hg. Pericardium/ Pleura There is no pericardial effusion. There is no pleural effusion. MMode/2D Measurements & Calculations LVIDd: 4.6 cm AoV Openin.8 cm LVIDs: 3.0 cm LVOT diam: 2.3 cm IVSd: 1.2 cm Ao root diam: 3.2 cm LVPWd: 1.3 cm asc Aorta Diam: 3.8 cm LV chen. diameter/BSA (cm/m^2): 1.9 Ao Arch Diam (Prox Trans): 2.5 cm LV sys. diameter/BSA (cm/m^2): 1.2 FS: 35.0 % LA A2 area: 11.6 cm2 RA long axis: 4.3 cm LA A4 area: 11.4 cm2 RA area: 13.6 cm2 LA length (vol): 4.0 cm RA vol: 36.1 ml LA vol: 28.3 ml RA : 14.7 ml/m2 LA vol index: 11.5 ml/m2 TAPSE: 2.5 cm IVC diam: 1.3 cm Doppler Measurements & Calculations Ao V2 max: 120.9 cm/sec LVOT Max Param: 106.3 cm/sec Ao V2 mean: 78.9 cm/sec LV V1 max P.5 mmHg Ao V2 VTI: 29.1 cm LV V1 VTI: 23.0 cm Ao max P.8 mmHg Ao mean P.0 mmHg FLORESITA(I,D): 3.3 cm2 MV E max param: 67.7 cm/sec FLORESITA(V,D): 3.7 cm2 MV A max param: 82.1 cm/sec FLORESITA indexed to BSA (cm^2/m^2): 1.3 MV E/A: 0.82 sev ratio: 0.79 Med Peak E' Param: 9.0 cm/sec E/E' med: 7.5 Lat Peak E' Param: 10.1 cm/sec E/E' lat: 6.7 E/e' average: 7.1 MV dec time: 0.24 sec TR max param: 211.3 cm/sec TR max P.9 mmHg PA V2 max: 72.1 cm/sec SV(LVOT): 95.7 ml PA V2 mean: 49.0 cm/sec PA mean P.1 mmHg PA pr(Accel): 31.0 mmHg Reading Physician:
== END ==
PROVIDERS: PCP Family Medicine; Referring Provider Family Medicine; Visit Provider Family Medicine
DX: I89.0 Lymphedema, not elsewhere classified (principal); E66.01 Morbid (severe) obesity due to excess calories; T73.3XXA Exhaustion due to excessive exertion, initial encounter
CPT/HCPCS: C8929; Q9957

== ENCOUNTER → 2024-08-22 16:31 | Outpatient (CLI) | payer MEDICARE, OTHER, SELFPAY ==
[2017-10-10 18:20] VITALS: BMI 56.2
[2024-08-22 18:13] LABS: Alanine Aminotransferase 32 IU/L (<35); Albumin 4.4 g/dL (3.5-5.0); Albumin Globulin Ratio 1.8 (1.0-2.8); Alkaline Phosphatase 91 U/L (38-126); Aspartate Aminotransferase 31 IU/L (14-36); BUN Creatinine Ratio 26.2 (6-22); Bilirubin Total 0.5 mg/dL (0.2-1.3); Blood Urea Nitrogen 22 mg/dL (7-17); Calcium 9.3 mg/dL (8.4-10.2); Carbon Dioxide 29 mmol/L (22-32); Chloride 102 mmol/L (98-107); Estimated Glomerular Filt Rate > 60 mL/min (>60); Globulin 2.5 g/dL (1.7-4.1); Glucose 80 mg/dL (70-99); HEMOLYSIS < 15 (0-50); Potassium 4.4 mmol/L (3.4-5.1); Sodium 139 mmol/L (137-145); Total Protein 6.9 g/dL (6.3-8.2); Uric Acid 5.1 mg/dL (2.5-6.2)
[2024-08-22 18:15] LABS: Hemoglobin A1C% w Est Avg Glu 4.9 % (4.0-6.0)
[2024-08-22 18:17] LABS: NT-proBNP (BNP-Adult 18+) 67 pg/mL (<125)
[2024-08-22 18:25] LABS: Free T4, Direct Thyroxine 1.29 ng/dL (0.78-2.19)
== END ==
PROVIDERS: PCP Family Medicine; Referring Provider Family Medicine; Visit Provider Family Medicine
DX: I10 Essential (primary) hypertension (principal); M06.9 Rheumatoid arthritis, unspecified; I89.0 Lymphedema, not elsewhere classified; E03.9 Hypothyroidism, unspecified; E78.00 Pure hypercholesterolemia, unspecified; E66.01 Morbid (severe) obesity due to excess calories
CPT/HCPCS: 36415; 80053; 83036; 83880; 84439; 84443; 84550

== ENCOUNTER 2025-02-08 14:06 | Emergency (ER) | payer MEDICARE, OTHER, SELFPAY ==
[2017-10-10 18:20] VITALS: BMI 56.2
[2025-02-08] VITALS (11 sets, daily range): BP systolic 131–170; BP diastolic 63–76; PULSE 75–86; RESP 15–21; TEMP 36.6; O2SAT 92–99; BMI 72.2
--- NOTE | 2025-02-08 14:21 | DI.CT.S_ITS ---
PROCEDURE: CT ANGIO CHEST PE PROTOCOL
--- NOTE | 2025-02-08 14:21 | ED_ITS ---
HPI - SOB/Dyspnea
--- NOTE | 2025-02-08 14:21 | ED.SOB ---
HPI - SOB/Dyspnea <Joby Ferro, DO - Last Filed: 02/08/25 14:44> General Chief Complaint: Shortness of Breath/Dyspnea Stated Complaint: Sent from [facility] low O2 , SOB Time Seen by Provider: 02/08/25 14:09 Source: patient Mode of arrival: Wheelchair Limitations: no limitations History of Present Illness HPI Narrative: 74-year-old morbidly obese patient hypothyroidism dyslipidemia rheumatoid arthritis hypertension that is with increased shortness breath dyspnea on exertion and wet cough intermittently for the last 3 weeks. She denies any pain back pain, nausea, vomiting, diarrhea, abdominal pain, urinary complaints, sore throat, lightheadedness, dizziness, leg pain, swelling. Other than what is stated 14 point review system is negative. Related Data Home Medications ?Medication ?Instructions ?Recorded ?Confirmed cholecalciferol (vitamin D3) 25 2,000 iu PO Q DAY ##0 08/17/10 09/11/24 mcg (1,000 unit) tablet (Vitamin D3) fluticasone propionate 50 1 spray intranasal DAILY ##0 08/17/10 09/11/24 mcg/actuation nasal spray,suspension folic acid 1 mg tablet 1 mg PO DAILY 03/05/21 09/11/24 methotrexate sodium 2.5 mg tablet 12.5 mg PO QWEEK 03/10/23 09/11/24 liothyronine 5 mcg tablet (Cytomel) 2.5 mcg PO QAM #0 tabs 12/19/23 09/11/24 Previous Rx's ?Medication ?Instructions ?Recorded Disabled Parking #1 ea 01/04/23 meloxicam 15 mg tablet 15 mg PO DAILY #90 tabs 06/21/24 losartan 25 mg tablet 25 mg PO BID #180 tabs 07/05/24 omeprazole 20 mg capsule,delayed 20 mg PO BID #180 caps 08/22/24 release torsemide 10 mg tablet 10 mg PO .lunch #90 tabs 08/22/24 spironolactone 25 mg tablet 50 mg (2 x 25 mg) PO DAILY #90 tabs 08/23/24 levothyroxine 175 mcg tablet 175 mcg PO DAILY #90 tabs 09/11/24 simvastatin 20 mg tablet 20 mg PO ONCE PM #90 tabs 12/31/24 Allergies Allergy/AdvReac Type Severity Reaction Status Date / Time Penicillins (PENICILLINS) Allergy Severe HIVES/ITCHING, Verified 02/08/25 14:20 TOLERATES CEFOTETAN anchovies Allergy Severe Swelling Uncoded 02/08/25 14:20 of eyes, mouth Review of Systems <Joby Ferro DO - Last Filed: 02/08/25 14:44> Review of Systems ROS Unobtainable: All systems reviewed & are unremarkable except as noted in HPI and below Patient History <Joby Ferro DO - Last Filed: 02/08/25 14:44> Medical History Hypertension Closed left ankle fracture Rheumatoid disease Family history of colon cancer Thyroid nodule Joint pain Hypothyroidism Bruises easily History of neutropenia Chronic knee pain Chronic shoulder pain Hyperlipidemia Lower extremity edema Surgical History H/O thumb surgery (~2007) S/P tendon repair (~1977) S/P tendon repair (~1973) H/O knee surgery (~2012) H/O knee surgery (~2011) History of (~1978) History of (~1975) History of bilateral tubal ligation History of colonoscopy History of cholecystectomy (~1995) History of laparoscopic appendectomy (~2014) History of discectomy (~2005) Hx of total knee arthroplasty (~2017) H/O thyroidectomy (~2009) History of (~1972) History of tonsillectomy (~1998) Status post cholecystectomy (~1995) Family History Father No problems noted. Mother COPD (chronic obstructive pulmonary disease) Brother Brain bleed Sister COPD (chronic obstructive pulmonary disease) Grandfather Cancer Grandmother No problems noted. Social History household members: spouse Smoking Status: Never smoker alcohol intake: current Smoking Status: Never smoker alcohol intake frequency: holidays/special occasions only Exam <Joby Ferro DO - Last Filed: 02/08/25 14:44> Narrative Exam Narrative: GENERAL: [74] year old patient appears stated age. Morbidly obese in mild distress. HEAD: Atraumatic. Normocephalic. EYES: Pupils equal round and reactive. Extraocular motions intact. No scleral icterus. No injection or drainage. ENT: Nose without bleeding, purulent drainage. Throat without erythema, tonsillar hypertrophy or exudate. Airway patent. NECK: Trachea midline. Non tender CARDIOVASCULAR: Regular rate and rhythm without murmurs, gallops, or rubs. RESPIRATORY: Diminished breath sounds faint crackles at the base GASTROINTESTINAL: Abdomen soft, non-tender, nondistended. EXTREMITIES: Trace to +1 pitting edema bilateral extremities BACK: Nontender without deformity or crepitance. No flank tenderness. NEURO: AOx3. SKIN: No rash or erythema of visible areas Initial Vital Signs Initial Vital Signs: Vital Signs Temperature 97.9 F 02/08/25 14:15 Pulse Rate 83 02/08/25 14:15 Respiratory Rate 20 02/08/25 14:15 Blood Pressure 170/71 H 02/08/25 14:15 Pulse Oximetry 99 02/08/25 14:15 Oxygen Delivery Method Room Air 02/08/25 14:15 <Cathi Loera, DO - Last Filed: 02/08/25 23:25> Initial Vital Signs Initial Vital Signs: Vital Signs Temperature 97.9 F 02/08/25 14:15 Pulse Rate 83 02/08/25 14:15 Respiratory Rate 20 02/08/25 14:15 Blood Pressure 170/71 H 02/08/25 14:15 Pulse Oximetry 99 02/08/25 14:15 Oxygen Delivery Method Room Air 02/08/25 14:15 Course <Joby Ferro, DO - Last Filed: 02/08/25 14:44> Orders Ordered: ED Orders 02/08/25 14:27 Covid-19 + FLU A/B + RSV - PCR Stat 02/08/25 15:34 Complete Blood Count AUTO DIFF Stat Comprehensive Metabolic Panel Stat Lipase Stat Magnesium Stat NT-proBNP (BNP-Adult 18+) Stat Troponin I Stat Discontinued Medications Albuterol (Albuterol 2.5 Mg/3 Ml Neb (Adult)) 2.5 mg INH NOW ONE Stop: 02/08/25 16:03 Last Admin: 02/08/25 16:40 Dose: 2.5 mg Documented By: FATOUMATA Albuterol (Albuterol Hfa Prepack) 1 box MISC DIRECTED ONE Stop: 02/08/25 17:38 Last Admin: 02/08/25 17:43 Dose: 1 box Documented By: NISA Aspirin (Aspirin 81 Mg Chew Tab) 324 mg PO NOW ONE Stop: 02/08/25 14:22 Last Admin: 02/08/25 15:18 Dose: 324 mg Documented By: NISA Vital Signs Vital signs: Vital Signs - 8 hr 02/08/25 15:30 02/08/25 15:58 02/08/25 15:58 Pulse Rate 79 75 Respiratory Rate 16 19 Blood Pressure 164/76 H Pulse Oximetry 98 96 Oxygen Delivery Method 02/08/25 16:00 02/08/25 16:00 02/08/25 16:40 Pulse Rate 79 84 Respiratory Rate 21 20 Blood Pressure 149/71 H Pulse Oximetry 97 95 Oxygen Delivery Method Room Air 02/08/25 16:41 02/08/25 17:00 Pulse Rate 81 77 Respiratory Rate 19 15 Blood Pressure Pulse Oximetry 92 96 Oxygen Delivery Method Room Air <Cathi Loera DO - Last Filed: 02/08/25 23:25> Orders Ordered: ED Orders 02/08/25 14:27 Covid-19 + FLU A/B + RSV - PCR Stat 02/08/25 15:34 Complete Blood Count AUTO DIFF Stat Comprehensive Metabolic Panel Stat Lipase Stat Magnesium Stat NT-proBNP (BNP-Adult 18+) Stat Troponin I Stat Discontinued Medications Albuterol (Albuterol 2.5 Mg/3 Ml Neb (Adult)) 2.5 mg INH NOW ONE Stop: 02/08/25 16:03 Last Admin: 02/08/25 16:40 Dose: 2.5 mg Documented By: FATOUMATA Albuterol (Albuterol Hfa Prepack) 1 box MISC DIRECTED ONE Stop: 02/08/25 17:38 Last Admin: 02/08/25 17:43 Dose: 1 box Documented By: NISA Aspirin (Aspirin 81 Mg Chew Tab) 324 mg PO NOW ONE Stop: 02/08/25 14:22 Last Admin: 02/08/25 15:18 Dose: 324 mg Documented By: NISA Vital Signs Vital signs: Vital Signs - 8 hr 02/08/25 15:30 02/08/25 15:58 02/08/25 15:58 Pulse Rate 79 75 Respiratory Rate 16 19 Blood Pressure 164/76 H Pulse Oximetry 98 96 Oxygen Delivery Method 02/08/25 16:00 02/08/25 16:00 02/08/25 16:40 Pulse Rate 79 84 Respiratory Rate 21 20 Blood Pressure 149/71 H Pulse Oximetry 97 95 Oxygen Delivery Method Room Air 02/08/25 16:41 02/08/25 17:00 Pulse Rate 81 77 Respiratory Rate 19 15 Blood Pressure Pulse Oximetry 92 96 Oxygen Delivery Method Room Air MDM - SOB/Dyspnea <Joby Ferro, DO - Last Filed: 02/08/25 14:44> Lab Data 02/08/25 15:34 02/08/25 15:34 Labs: Lab Results 02/08/25 02/08/25 Range/Units 14:27 15:34 WBC 6.5 (4.5-11.0) X10^3/uL RBC 3.94 L (4.0-5.2) X10^6/uL Hgb 13.1 (12.0-16.0) g/dL Hct 38.1 (36-46) % MCV 96.8 (80-100) fL MCH 33.2 (26-34) PG MCHC 34.3 (30-36) % RDW 16.5 H (11.6-14.8) % Plt Count 216 (150-400) X10^3/uL Neut % (Auto) 56.9 (50-75) % Lymph % (Auto) 25.5 (25-40) % [place] % (Auto) 11.8 (3-14) % Eos % (Auto) 4.7 H (2-4) % Baso % (Auto) 1.1 (0-2) % Neut # (Auto) 3700 (4471-5934) /uL Lymph # (Auto) 1700 (9201-9425) /uL [place] # (Auto) 800 (0-900) /uL Eos # (Auto) 300 (0-450) /uL Baso # (Auto) 100 (0-100) /uL Sodium 138 (137-145) mmol/L Potassium 4.2 (3.4-5.1) mmol/L Chloride 104 (98-107) mmol/L Carbon Dioxide 27 (22-32) mmol/L BUN 18 H (7-17) mg/dL Creatinine 0.97 (0.52-1.04) mg/dL Estimated GFR > 60 (>60) mL/min BUN/Creatinine Ratio 18.6 (6-22) Glucose 90 (70-99) mg/dL Calcium 9.2 (8.4-10.2) mg/dL Magnesium 2.0 (1.6-2.3) mg/dL Total Bilirubin 0.6 (0.2-1.3) mg/dL AST 35 (14-36) IU/L ALT 30 (<35) IU/L Alkaline Phosphatase 95 (38-126) U/L Troponin I < 0.012 (0.01-0.034) ng/mL NT-Pro-B Natriuret Pep 101 (<125) pg/mL Total Protein 7.3 (6.3-8.2) g/dL Albumin 4.3 (3.5-5.0) g/dL Globulin 3.0 (1.7-4.1) g/dL Albumin/Globulin Ratio 1.4 (1.0-2.8) Lipase 80 (23-300) U/L SARS-CoV-2 (PCR) Negative (Negative) Influenza A (RT-PCR) Flu a negative (NEGATIVE) Influenza B (RT-PCR) Flu b negative (NEGATIVE) RSV (PCR) Negative (Negative) Urine Dip Bedside Urine Glucose Negative Bedside Urine Bilirubin - Negative Bedside Urine Ketone - Negative Urine Specific [place] 1.005 Bedside Urine Occult Blood - Negative Bedside Urine pH 6.0 Bedside Urine Protein - Negative Bedside Urine Urobilinogen - Negative Bedside Urine Nitrite - Negative Bedside Urine Leukocytes - Negative Esterase ECG Data Interpretation: NSR HR 84 DC 200 QRS [address]-t wave change Unchanged from 09/13/17 <Cathi Loera, - Last Filed: 02/08/25 23:25> Lab Data Labs: Lab Results 02/08/25 02/08/25 Range/Units 14:27 15:34 WBC 6.5 (4.5-11.0) X10^3/uL RBC 3.94 L (4.0-5.2) X10^6/uL Hgb 13.1 (12.0-16.0) g/dL Hct 38.1 (36-46) % MCV 96.8 (80-100) fL MCH 33.2 (26-34) PG MCHC 34.3 (30-36) % RDW 16.5 H (11.6-14.8) % Plt Count 216 (150-400) X10^3/uL Neut % (Auto) 56.9 (50-75) % Lymph % (Auto) 25.5 (25-40) % [place] % (Auto) 11.8 (3-14) % Eos % (Auto) 4.7 H (2-4) % Baso % (Auto) 1.1 (0-2) % Neut # (Auto) 3700 (0956-0239) /uL Lymph # (Auto) 1700 (8683-3791) /uL [place] # (Auto) 800 (0-900) /uL Eos # (Auto) 300 (0-450) /uL Baso # (Auto) 100 (0-100) /uL Sodium 138 (137-145) mmol/L Potassium 4.2 (3.4-5.1) mmol/L Chloride 104 (98-107) mmol/L Carbon Dioxide 27 (22-32) mmol/L BUN 18 H (7-17) mg/dL Creatinine 0.97 (0.52-1.04) mg/dL Estimated GFR > 60 (>60) mL/min BUN/Creatinine Ratio 18.6 (6-22) Glucose 90 (70-99) mg/dL Calcium 9.2 (8.4-10.2) mg/dL Magnesium 2.0 (1.6-2.3) mg/dL Total Bilirubin 0.6 (0.2-1.3) mg/dL AST 35 (14-36) IU/L ALT 30 (<35) IU/L Alkaline Phosphatase 95 (38-126) U/L Troponin I < 0.012 (0.01-0.034) ng/mL NT-Pro-B Natriuret Pep 101 (<125) pg/mL Total Protein 7.3 (6.3-8.2) g/dL Albumin 4.3 (3.5-5.0) g/dL Globulin 3.0 (1.7-4.1) g/dL Albumin/Globulin Ratio 1.4 (1.0-2.8) Lipase 80 (23-300) U/L SARS-CoV-2 (PCR) Negative (Negative) Influenza A (RT-PCR) Flu a negative (NEGATIVE) Influenza B (RT-PCR) Flu b negative (NEGATIVE) RSV (PCR) Negative (Negative) Urine Dip Bedside Urine Glucose Negative Bedside Urine Bilirubin - Negative Bedside Urine Ketone - Negative Urine Specific [place] 1.005 Bedside Urine Occult Blood - Negative Bedside Urine pH 6.0 Bedside Urine Protein - Negative Bedside Urine Urobilinogen - Negative Bedside Urine Nitrite - Negative Bedside Urine Leukocytes - Negative Esterase Imaging Data CT scan - chest: Radiologist's Impression: PROCEDURE: CT ANGIO CHEST PE PROTOCOL INDICATIONS: sob chamberlain TECHNIQUE: After the administration of intravenous contrast, 2 mm thick sections acquired from the pulmonary apices to the posterior costophrenic angles. 3-dimensional maximum intensity projection (MIP) coronal and sagittal reformats were then acquired through the thorax. For radiation dose reduction, the following was used: automated exposure control, adjustment of mA and/or kV according to patient size. COMPARISON: None. FINDINGS: Image quality: Diagnostic. Pulmonary arteries: Pulmonary arteries are normal in size, and demonstrate no intraluminal filling defects to suggest central pulmonary embolism. Lower Neck: No enlarged lymph nodes. Thyroid: No thyroid nodules which require sonographic follow up, per consensus guidelines. Axillae: No enlarged lymph nodes. Chest Wall: Unremarkable. Bones: Unremarkable. Lungs and Pleura: No pneumothorax or pleural effusions. No consolidation or suspicious nodules. There is large body habitus and reduced inspiratory volume resulting in a generalized mild pattern of subsegmental atelectasis. Heart: Heart size is normal. No pericardial effusion. Thoracic Vessels: No aortic aneurysm. Mediastinum and Janet: No enlarged lymph nodes. Esophagus: No wall thickening. No hiatal hernia. Upper Abdomen: Visualized upper abdomen solid organs and bowel loops appear normal. IMPRESSION: No pulmonary embolus. No acute cardiopulmonary process. Dictated by: Abdirizak Arboleda M.D. on 02/08/2025 at 16:56 MDM Narrative Medical decision making narrative: Dr. Loera 1600 patient is a 74-year-old female history of rheumatoid arthritis morbid obesity hypothyroidism presenting today with increasing shortness of breath. She reports that over the last few months she has noted increasing shortness of breath with exertion she says it is now at rest. She does have a pulse oximeter at home says that when she gets up at night and moves from bed to chair she notices it drops to the 80s. She also reports some reactive airway cough. When she can not stop coughing. She denies any fever or chills. That has also gotten worse. She has been on diuretics since this summer for lower extremity edema she is not sure that that is been helping she still feels like she has some fluid overload. Blood work has been reviewed CBC shows no leukocytosis no anemia CMP no electrolyte abnormality no FATEMEH glucose 90 Bilirubin liver enzymes within normal limits lipase is 80 Troponin negative BNP [address] angio chest, no pulmonary embolism no pneumonia EKGs reviewed sinus rhythm rate 84 DC interval 200 QRS [address] changes or T-wave inversions Patient did receive albuterol here in the ED she reports minimal improvement. Ambulation trial. She was able to walk she is not hypoxic not significantly tachycardic. At this time patient is not hypoxic in the emergency department not require oxygen at rest. She has no evidence of infection no pulmonary embolism no evidence of congestive heart failure or acute coronary syndrome. At this time does not require admission. She is given albuterol inhaler and spacer here in the ED so that she can have it tonight if needed. Discussion about when to return to ED with patient and . Discharge Plan Departure Patient Disposition: Home Clinical Impression: RAD (reactive airway disease) Instructions: DI for Asthma -- Adult Activity Restrictions/Additional Instructions: *You have been diagnosed with reactive airway *What to do: At this time try using albuterol every 4 hours to see if it helps with the your coughing spells. Only use it while awake or as needed *Continue to take medications as directed Albuterol 1-2 puffs every 4 hours if needed for coughing and shortness of *Follow up with your primary care provider in 2-3 days or call [phone] *Return to ER if you should have increasing shortness of breath weakness chest or any new, worsening or concerning symptoms Prescriptions: No Action fluticasone propionate 16 GM spray,suspension 1 spray Intranasal DAILY Qty: 0 cholecalciferol (vitamin D3) [Vitamin D3] 1,000 UNIT tablet 2,000 iu PO Q DAY Qty: 0 (DME) Disabled Parking See Rx Instructions .ROUTE .MEDSUPPLY Qty: 1 0RF Rx Instructions: Patient qualifies for disabled parking as per the attached form. liothyronine [Cytomel] 5 mcg tablet 2.5 mcg PO QAM Qty: 0 meloxicam 15 mg tablet 15 mg PO DAILY Qty: 90 3RF losartan 25 mg tablet 25 mg PO BID Qty: 180 3RF spironolactone 25 mg tablet 50 mg PO DAILY Qty: 90 3RF simvastatin 20 mg tablet 20 mg PO ONCE PM Qty: 90 2RF omeprazole 20 mg capsule,delayed release(DR/EC) 20 mg PO BID Qty: 180 3RF torsemide 10 mg tablet 10 mg PO .lunch Qty: 90 3RF folic acid 1 mg tablet 1 mg PO DAILY methotrexate sodium 2.5 mg tablet 12.5 mg PO QWEEK Rx Instructions: take 5 tablet in the morning and 5 tablets at night once a week levothyroxine 175 mcg tablet 175 mcg PO DAILY Qty: 90 3RF Referrals: Juventino Bernstein DO [Primary Care Provider, Family Practice] Stand Alone Forms: Patient Portal/API
--- NOTE | 2025-02-08 14:28 | EKG_ITS ---
[facility]
[2025-02-08 15:14] LABS: Influenza A - CEPHEID Flu A NEGATIVE (NEGATIVE); Influenza B - CEPHEID Flu B NEGATIVE (NEGATIVE)
[2025-02-08] MEDS: ASPIRIN 81 MG CHEW TAB 324 MG PO (15:18)
[2025-02-08 15:21] LABS: COVID-19 CEPHEID 4-PLEX PCR Negative (Negative)
[2025-02-08 15:43] LABS: Add Manual Diff / Slide Review NO; Hematocrit 38.1 % (36-46); Hemoglobin 13.1 g/dL (12.0-16.0); Lymphocytes Absolute Auto 1700 /uL (1100-4500); Mean Corpuscular HGB Conc 34.3 % (30-36); Mean Corpuscular Hemoglobin 33.2 PG (26-34); Mean Corpuscular Volume 96.8 fL (80-100); Platelet Count 216 X10^3/uL (150-400)
[2025-02-08 15:54] LABS: Alanine Aminotransferase 30 IU/L (<35); Albumin 4.3 g/dL (3.5-5.0); Albumin Globulin Ratio 1.4 (1.0-2.8); Alkaline Phosphatase 95 U/L (38-126); Blood Urea Nitrogen 18 mg/dL (7-17); Calcium 9.2 mg/dL (8.4-10.2); Carbon Dioxide 27 mmol/L (22-32); Chloride 104 mmol/L (98-107); Estimated Glomerular Filt Rate > 60 mL/min (>60); Globulin 3.0 g/dL (1.7-4.1); Glucose 90 mg/dL (70-99); HEMOLYSIS 25 (0-50); Lipase 80 U/L (23-300); Magnesium 2.0 mg/dL (1.6-2.3); Potassium 4.2 mmol/L (3.4-5.1); Sodium 138 mmol/L (137-145); Total Protein 7.3 g/dL (6.3-8.2)
[2025-02-08 16:06] LABS: NT-proBNP (BNP-Adult 18+) 101 pg/mL (<125); Troponin I < 0.012 ng/mL (0.01-0.034)
[2025-02-08] MEDS: ALBUTEROL 2.5 MG/3 ML NEB (ADULT) INH (16:40)
--- NOTE | 2025-02-08 17:09 | RT ---
pt tia callejas well,on room air with no distress noted
--- NOTE | 2025-02-08 17:33 | PC.NURSE ---
Pt ambulatory w/a cane on pulse ox. Able to maitain O2 sats 90% on RA and HR 98. No c/o SOB, CP or dizziness. Pt endorsed feeling tired after one loop around nurses station but states she wants to go home. notified.
[2025-02-08] MEDS: ALBUTEROL HFA PREPACK 1 BOX MISC (17:43)
== END 2025-02-08 17:46 | disposition home or self-care (01) ==
PROVIDERS: Family Medicine; Emergency Provider Emergency Medicine; PCP Family Medicine
DX: J45.909 Unspecified asthma, uncomplicated (principal)
CPT/HCPCS: 36415; 71275; 80053; 81003; 83690; 83735; 83880; 84484; 85025; 87637; 93005; 94640; 99284; J7613; Q9967

== ENCOUNTER → 2025-03-21 09:18 | Outpatient (CLI) | payer MEDICARE, OTHER, SELFPAY ==
[2017-10-10 18:20] VITALS: BMI 56.2
== END ==
LOC: RESP 09:19
PROVIDERS: PCP Family Medicine; Referring Provider Internal Medicine Critical Care Medicine; Visit Provider Internal Medicine Critical Care Medicine
DX: R06.09 Other forms of dyspnea (principal); R05.9 Cough, unspecified; R94.2 Abnormal results of pulmonary function studies
CPT/HCPCS: 94060; 94726; 94729